=== PATIENT | female | born 1955 | race African-American/Black ===

== ENCOUNTER 2016-06-20 02:40 | Emergency (ER) | payer MEDICARE, MEDICAID ==
[~2016-06-20] VITALS: Ht 167.6 cm; Wt 62.0 kg
[2016-06-20] MEDS ORDERED: ACETAMINOPHEN 500 MG TABLET PO ONE (03:05)
[2016-06-20] MEDS ORDERED: ACETAMINOPHEN 500 MG TABLET ONE (03:06)
[2016-06-20] MEDS ORDERED: CARV3.122 PO (03:23)
[2016-06-20] MEDS ORDERED: ATOR40TA78 PO (03:23)
[2016-06-20] MEDS ORDERED: TRAZ50TA18 PO (03:23)
[2016-06-20] MEDS ORDERED: LISI5TAB7 PO (03:23)
[2016-06-20] MEDS ORDERED: AMLO10TA2 PO (03:23)
[2016-06-20] MEDS ORDERED: ALBU90AE INH (03:23)
[2016-06-20] MEDS ORDERED: CLON0.2T PO (03:23)
[2016-06-20 03:30] LABS: HEMOGLOBIN 11.2 g/dL (11.7-16.4)
[2016-06-20 03:39] LABS: BLOOD UREA NITROGEN 41 mg/dL (7-18)
[2016-06-20] MEDS ORDERED: SODIUM CHLORIDE 0.9% 1,000ML IVBOLUS ONE (04:00)
[2016-06-20] MEDS ORDERED: SODIUM CHLORIDE FLUSH 10ML SYR IVF ONE (04:00)
[2016-06-20 04:38] VITALS: BP 166/88
== END 2016-06-20 04:39 | disposition home or self-care (01) ==
LOC: ED 04:33
DX: M54.5 Low back pain (principal); I10 Essential (primary) hypertension; E11.9 Type 2 diabetes mellitus without complications; F15.10 Other stimulant abuse, uncomplicated
CPT/HCPCS: 36415; 80048; 81001; 82040; 85025; 87086; 99284; J7030

== ENCOUNTER 2018-01-21 05:42 | Inpatient (IN) | payer MEDICARE, MEDICAID ==
[~2018-01-21] VITALS: Ht 165.1 cm; Wt 66.1 kg
[~2018-01-21 05:42] MED LIST: ALBU90AE INH; AMLO10TA6 PO; ATOR40TA78 PO; CALC667C PO; CARV12.543 PO; CARV3.122 PO; CLON0.2T PO; ERGO500017 PO; LISI5TAB7 PO; NICO-487 TD; SEVE800T8 PO; TRAZ-136 PO; VANC1VIA3 PO
[2018-01-21] MEDS ORDERED: ONDANSETRON 2MG/ML, 2ML ONE (05:59)
[2018-01-21] MEDS ORDERED: SODIUM CHLORIDE FLUSH 10ML SYR IVF ONE (06:00)
[2018-01-21] MEDS ORDERED: MORPHINE SULFATE 4 MG/ML, 1ML IVPush PRN (06:00)
[2018-01-21] MEDS ORDERED: MORPHINE SULFATE 4 MG/ML, 1ML ONE (06:00)
[2018-01-21] MEDS ORDERED: ONDANSETRON 2MG/ML, 2ML IVPush ONE (06:00)
[2018-01-21] MEDS ORDERED: ONDANSETRON ODT 4 MG ONE (06:35)
[2018-01-21] MEDS ORDERED: OXYcodone/APAP 5/325MG TABLET ONE (06:36)
[2018-01-21] MEDS ORDERED: OXYcodone/APAP 5/325MG TABLET PO ONE (07:00)
[2018-01-21] MEDS ORDERED: ONDANSETRON ODT 4 MG PO ONE (07:00)
[2018-01-21 07:01] LABS: BASOPHILS # (AUTO) 0.05 x10^3/uL (0-0.1); BASOPHILS % (AUTO) 1 % (0-1); EOSINOPHILS # (AUTO) 0.16 x10^3/uL (0-0.4); EOSINOPHILS % (AUTO) 2 % (1-7); LYMPHOCYTES # (AUTO) 2.16 x10^3/uL (1-3.4); LYMPHOCYTES % (AUTO) 31 % (22-44); MD NO; MEAN CORPUSCULAR HEMOGLOBIN 29.8 pg (27.0-34.8); MEAN CORPUSCULAR HGB CONC 32.5 g/dL (32.4-35.8); MEAN CORPUSCULAR VOLUME 91.8 fL (80-100); MEAN PLATELET VOLUME 8.3 fL (7.4-10.4); MONOCYTES # (AUTO) 0.57 x10^3/uL (0.2-0.8); MONOCYTES % (AUTO) 8 % (2-9); NEUTROPHILS # (AUTO) 4.11 x10^3/uL (1.8-6.8); NEUTROPHILS % (AUTO) 58 % (42-75); PLATELET COUNT 251 x10^3/uL (130-400); RED BLOOD COUNT 3.53 x10^6/uL (3.82-5.3); RED CELL DISTRIBUTION WIDTH 18.1 % (9.6-15.2)
[2018-01-21 07:10] LABS: ALANINE AMINOTRANSFERASE 24 U/L (12-78); ALBUMIN 3.4 g/dL (3.4-5.0); ANION GAP 10 mmol/L (5-15); CALCIUM 8.8 mg/dL (8.5-10.1); CHLORIDE 101 mmol/L (98-107)
[2018-01-21 07:12] LABS: ALKALINE PHOSPHATASE 114 U/L (45-117); BILIRUBIN,TOTAL 0.3 mg/dL (0.2-1.0); TOTAL PROTEIN 8.1 g/dL (6.4-8.2)
[2018-01-21 11:32] LABS: CULTURE INDICATED? YES; MICROSCOPIC INDICATED
[2018-01-21] MEDS ORDERED: SODIUM CHLORIDE 0.9% 1,000ML IVBOLUS ONE (12:00)
[2018-01-21] MEDS: VALSARTAN 80 MG TABLET PO SCH (12:13)
[2018-01-21] MEDS ORDERED: HYDROmorphone 2 MG/ML, 1ML IVPush PRN (12:30)
[2018-01-21] MEDS ORDERED: LABETALOL 5MG/ML, 20ML IVPush PRN (12:30)
[2018-01-21] MEDS ORDERED: ACETAMINOPHEN 325 MG TABLET PO PRN (12:30)
[2018-01-21] MEDS ORDERED: ERGOCALCIFEROL 50,000 UNIT CAPSULE PO SCH (12:30)
[2018-01-21] MEDS ORDERED: OXYcodone IR 5MG TABLET PO PRN (12:30)
[2018-01-21] MEDS ORDERED: hydrALAzine 20 MG/ML, 1ML IVPush PRN (12:30)
[2018-01-21] MEDS ORDERED: CEFTRIAXONE PMX 1GM/50ML 50 ML IV ONE (13:00)
[2018-01-21] MEDS: HEPARIN 5,000 UNITS/ML, 1ML SQ SCH ×2 (14:06→21:36)
[2018-01-21] MEDS: NICOTINE 21 MG/24 HR PATCH.TD24 TD SCH (14:06)
[2018-01-21 14:14] VITALS: BP 165/89
[2018-01-21] MEDS: SEVELAMER CARBONATE 800MG TAB PO SCH (17:00)
[2018-01-21] MEDS: VANCOMYCIN 50 MG/ML ORAL SUSP PO SCH ×2 (17:32→23:16)
[2018-01-21] MEDS: CALCIUM ACETATE 667 MG CAPSULE PO SCH ×2 (17:32→21:36)
[2018-01-21] MEDS: CARVEDILOL 12.5 MG TABLET PO SCH (17:33)
[2018-01-21] MEDS ORDERED: TRAZODONE 50MG TABLET PO SCH (21:00)
[2018-01-21] MEDS ORDERED: ATORVASTATIN 40 MG TABLET PO SCH (21:00)
[2018-01-21 21:01] VITALS: BP 131/66
[2018-01-22 03:09] VITALS: BP 132/79
[2018-01-22] MEDS: HEPARIN 5,000 UNITS/ML, 1ML SQ SCH ×2 (05:16→14:46)
[2018-01-22] MEDS: CARVEDILOL 12.5 MG TABLET PO SCH (05:16)
[2018-01-22] MEDS: VANCOMYCIN 50 MG/ML ORAL SUSP PO SCH ×2 (05:16→10:31)
[2018-01-22 05:17] VITALS: BP 131/76
[2018-01-22 05:54] LABS: BASOPHILS # (AUTO) 0.05 x10^3/uL (0-0.1); BASOPHILS % (AUTO) 1 % (0-1); EOSINOPHILS # (AUTO) 0.17 x10^3/uL (0-0.4); EOSINOPHILS % (AUTO) 3 % (1-7); LYMPHOCYTES # (AUTO) 2.01 x10^3/uL (1-3.4); LYMPHOCYTES % (AUTO) 35 % (22-44); MD NO; MEAN CORPUSCULAR HEMOGLOBIN 30.8 pg (27.0-34.8); MEAN CORPUSCULAR HGB CONC 33.1 g/dL (32.4-35.8); MEAN CORPUSCULAR VOLUME 93.1 fL (80-100); MEAN PLATELET VOLUME 8.4 fL (7.4-10.4); MONOCYTES # (AUTO) 0.45 x10^3/uL (0.2-0.8); MONOCYTES % (AUTO) 8 % (2-9); NEUTROPHILS # (AUTO) 3.05 x10^3/uL (1.8-6.8); NEUTROPHILS % (AUTO) 53 % (42-75); PLATELET COUNT 219 x10^3/uL (130-400); RED BLOOD COUNT 3.22 x10^6/uL (3.82-5.3); RED CELL DISTRIBUTION WIDTH 17.8 % (9.6-15.2)
[2018-01-22 06:05] LABS: CALCIUM 8.3 mg/dL (8.5-10.1); CHLORIDE 103 mmol/L (98-107)
[2018-01-22 06:11] LABS: ANION GAP 10 mmol/L (5-15); CREATININE 7.29 mg/dL (0.55-1.02)
[2018-01-22 06:12] LABS: ALBUMIN 2.9 g/dL (3.4-5.0); CHOL/HDL RATIO 1.6; CHOLESTEROL, TOTAL 102 mg/dL (140-239); HDL CHOL % 63 % (28-40); HDL CHOLESTEROL (DIRECT) 64 mg/dL (40-60); LDL CHOLESTEROL,CALCULATED 28 mg/dL (54-169); LDL/HDL RATIO 0.4 (0.5-3.0); TRIGLYCERIDES 52 mg/dL (50-200); VLDL CHOLESTEROL 10 mg/dL (0-25)
[2018-01-22 06:44] VITALS: BP 150/78
[2018-01-22] MEDS: SEVELAMER CARBONATE 800MG TAB PO SCH ×2 (08:00→12:00)
[2018-01-22] MEDS: CALCIUM ACETATE 667 MG CAPSULE PO SCH ×2 (08:27→14:46)
[2018-01-22] MEDS: VALSARTAN 80 MG TABLET PO SCH (08:27)
[2018-01-22 13:45] VITALS: BP 167/79
[2018-01-22] MEDS: NICOTINE 21 MG/24 HR PATCH.TD24 TD SCH (14:47)
[2018-01-22] MEDS ORDERED: SULF1TAB24 PO (14:53)
[2018-01-22] MEDS ORDERED: VALS80TA30 PO (14:54)
== END 2018-01-22 18:02 | disposition home or self-care (01) | DRG 438 ==
LOC: ED 05:53 → EDIP 12:16 → 4WST 13:11
PROVIDERS: ADMIT Hospitalist; ATTEND Family Medicine
PROC: 5A1D70Z Performance of Urinary Filtration, Intermittent, Less than 6 Hours Per Day (ICD-10-PCS; principal; 2018-01-21)
DX: K85.90 Acute pancreatitis without necrosis or infection, unspecified (principal); N18.6 End stage renal disease; G93.40 Encephalopathy, unspecified; I12.0 Hypertensive chronic kidney disease with stage 5 chronic kidney disease or end stage renal disease; Z99.2 Dependence on renal dialysis; E11.22 Type 2 diabetes mellitus with diabetic chronic kidney disease; D63.1 Anemia in chronic kidney disease; E87.5 Hyperkalemia; E87.70 Fluid overload, unspecified; F17.200 Nicotine dependence, unspecified, uncomplicated; F19.90 Other psychoactive substance use, unspecified, uncomplicated; N25.0 Renal osteodystrophy; Z59.0 Homelessness; Z76.5 Malingerer [conscious simulation]; Z86.19 Personal history of other infectious and parasitic diseases
CPT/HCPCS: 36415; 72146; 72148; 74176; 80053; 80061; 80069; 81001; 83690; 83735; 84550; 85025; 86141; 87077; 87086; 87186; 99285; G0378; J1644; J3370; Q0162

== ENCOUNTER 2018-03-31 10:55 | Inpatient (IN) | payer MEDICARE, MEDICAID ==
[~2018-03-31] VITALS: Ht 165.1 cm; Wt 62.6 kg
[~2018-03-31 10:55] MED LIST changes: +SULF1TAB24 PO; -TRAZ-136 PO; +TRAZ50TA66 PO; +VALS80TA30 PO
[2018-03-31] MEDS ORDERED: hydrALAzine 20 MG/ML, 1ML IV ONE (11:30)
[2018-03-31] MEDS ORDERED: NITROGLYCERIN SINGLE TAB 0.4 MG SL PRN (11:30)
[2018-03-31] MEDS ORDERED: SODIUM CHLORIDE FLUSH 10ML SYR IVF ONE (11:30)
[2018-03-31] MEDS ORDERED: NITROGLYCERIN SINGLE TAB 0.4 MG SL ONE (11:49)
[2018-03-31] MEDS ORDERED: hydrALAzine 20 MG/ML, 1ML ONE (11:50)
--- NOTE | 2018-03-31 12:20 | NUR ---
UNABLE TO GET IV OR US IV. DR SHI AWARE. PICC ORDERED.
--- NOTE | 2018-03-31 13:01 | NUR ---
PT REFUSED 3RD DOSE OF NITRO.
[2018-03-31 13:02] LABS: BASOPHILS # (AUTO) 0.02 x10^3/uL (0-0.1); BASOPHILS % (AUTO) 1 % (0-1); EOSINOPHILS % (AUTO) 2 % (1-7); LYMPHOCYTES # (AUTO) 1.61 x10^3/uL (1-3.4); LYMPHOCYTES % (AUTO) 32 % (22-44); MD NO; MEAN CORPUSCULAR HEMOGLOBIN 30.7 pg (27.0-34.8); MEAN CORPUSCULAR VOLUME 90.3 fL (80-100); MEAN PLATELET VOLUME 7.5 fL (7.4-10.4); MONOCYTES # (AUTO) 0.37 x10^3/uL (0.2-0.8); MONOCYTES % (AUTO) 7 % (2-9); NEUTROPHILS % (AUTO) 58 % (42-75); PLATELET COUNT 220 x10^3/uL (130-400); RED BLOOD COUNT 3.95 x10^6/uL (3.82-5.3); RED CELL DISTRIBUTION WIDTH 15.9 % (9.6-15.2)
[2018-03-31 13:10] LABS: ALBUMIN 3.5 g/dL (3.4-5.0); ANION GAP 14 mmol/L (5-15); CALCIUM 7.5 mg/dL (8.5-10.1); CHLORIDE 101 mmol/L (98-107)
[2018-03-31 13:13] LABS: ALANINE AMINOTRANSFERASE 35 U/L (12-78); BILIRUBIN,TOTAL 0.5 mg/dL (0.2-1.0); TOTAL PROTEIN 8.2 g/dL (6.4-8.2); TROPONIN I 0.045 ng/mL (0.000-0.045)
--- NOTE | 2018-03-31 13:13 | NUR ---
PT TO IR FOR PICC PLACEMENT
[2018-03-31 13:26] LABS: ALKALINE PHOSPHATASE 118 U/L (45-117); T4 (THYROXINE) 6.8 mcg/dL (4.8-13.9)
--- NOTE | 2018-03-31 13:40 | NUR ---
CRITICAL K 7.3, BUN 105, PHOS 11.2; RESULTS TAKEN BY MILLI; DR SHI AWARE.
[2018-03-31] MEDS ORDERED: CALCIUM CHLORIDE 10%, 10ML SYR ONE (13:42)
[2018-03-31] MEDS ORDERED: DEXTROSE 50%, 50ML SYRINGE ONE (13:42)
[2018-03-31] MEDS ORDERED: SODIUM BICARB 8.4%, 50ML SYRINGE ONE (13:42)
[2018-03-31] MEDS ORDERED: INSULIN REGULAR 100 UNITS/ML, 3ML VIAL ONE (13:43)
[2018-03-31] MEDS ORDERED: SODIUM BICARB 8.4%, 50ML SYRINGE IVPush ONE (14:00)
[2018-03-31] MEDS ORDERED: SODIUM CHLORIDE FLUSH 10ML SYR IVF PRN (14:00)
[2018-03-31] MEDS ORDERED: CALCIUM CHLORIDE 10%, 10ML SYR IVPush ONE (14:00)
[2018-03-31] MEDS ORDERED: INSULIN REGULAR 100 UNITS/ML, 3ML VIAL IVPush ONE (14:00)
[2018-03-31] MEDS ORDERED: DEXTROSE 50%, 50ML SYRINGE IVPush ONE (14:00)
[2018-03-31] MEDS ORDERED: LABETALOL 20 MG/4 ML ONE (14:06)
[2018-03-31] MEDS ORDERED: LABETALOL 5MG/ML, 20ML IVPush ONE (14:30)
[2018-03-31] MEDS ORDERED: ONDANSETRON 2MG/ML, 2ML IVPush PRN (15:00)
[2018-03-31] MEDS ORDERED: hydrALAzine 20 MG/ML, 1ML IVPush PRN (15:00)
[2018-03-31] MEDS ORDERED: ALBUTEROL SULFATE 2.5 MG/3 ML HHN PRN (15:00)
[2018-03-31] MEDS ORDERED: ERGOCALCIFEROL 50,000 UNIT CAPSULE PO SCH (15:00)
[2018-03-31] MEDS ORDERED: ONDANSETRON ODT 4 MG PO PRN (15:00)
[2018-03-31] MEDS ORDERED: LABETALOL 5MG/ML, 20ML IVPush PRN (15:00)
[2018-03-31] MEDS ORDERED: DEXTROSE 4 GM TAB.CHEW PO PRN (15:30)
[2018-03-31] MEDS ORDERED: DEXTROSE 50%, 50ML SYRINGE IVPush PRN (15:30)
[2018-03-31] MEDS ORDERED: GLUCAGON 1 MG IM PRN (15:30)
[2018-03-31] MEDS: CALCIUM ACETATE 667 MG CAPSULE PO SCH ×2 (16:30→20:40)
[2018-03-31 17:15] VITALS: BP 178/101
[2018-03-31] MEDS: SEVELAMER CARBONATE 800MG TAB PO SCH (18:33)
[2018-03-31] MEDS: CARVEDILOL 12.5 MG TABLET PO SCH (18:33)
[2018-03-31] MEDS: NICOTINE 21 MG/24 HR PATCH.TD24 TD SCH (18:34)
[2018-03-31 20:26] VITALS: BP 142/79
[2018-03-31] MEDS: HEPARIN 5,000 UNITS/ML, 1ML SQ SCH (20:40)
[2018-03-31] MEDS: SODIUM CHLORIDE FLUSH 10ML SYR IVF SCH (20:40)
[2018-03-31] MEDS: ATORVASTATIN 40 MG TABLET PO SCH (20:40)
[2018-03-31] MEDS ORDERED: TRAZODONE 50MG TABLET PO SCH (21:00)
[2018-03-31] MEDS: ACETAMINOPHEN 325 MG TABLET PO PRN (23:06)
[2018-04-01 00:47] VITALS: BP 130/77
[2018-04-01] MEDS ORDERED: GABAPENTIN 300 MG CAPSULE PO ONE (02:00)
[2018-04-01] MEDS: ACETAMINOPHEN 325 MG TABLET PO PRN (02:59)
[2018-04-01 05:44] LABS: BASOPHILS # (AUTO) 0.04 x10^3/uL (0-0.1); BASOPHILS % (AUTO) 1 % (0-1); EOSINOPHILS # (AUTO) 0.09 x10^3/uL (0-0.4); EOSINOPHILS % (AUTO) 2 % (1-7); LYMPHOCYTES # (AUTO) 1.78 x10^3/uL (1-3.4); LYMPHOCYTES % (AUTO) 40 % (22-44); MD NO; MEAN CORPUSCULAR HEMOGLOBIN 30.4 pg (27.0-34.8); MEAN CORPUSCULAR HGB CONC 33.7 g/dL (32.4-35.8); MEAN CORPUSCULAR VOLUME 90.2 fL (80-100); MEAN PLATELET VOLUME 7.9 fL (7.4-10.4); MONOCYTES # (AUTO) 0.43 x10^3/uL (0.2-0.8); MONOCYTES % (AUTO) 10 % (2-9); NEUTROPHILS % (AUTO) 47 % (42-75); PLATELET COUNT 194 x10^3/uL (130-400); RED BLOOD COUNT 3.66 x10^6/uL (3.82-5.3); RED CELL DISTRIBUTION WIDTH 16.8 % (9.6-15.2)
[2018-04-01 05:58] LABS: CHLORIDE 100 mmol/L (98-107)
[2018-04-01] MEDS: CARVEDILOL 12.5 MG TABLET PO SCH ×2 (06:01→17:42)
[2018-04-01] MEDS: HEPARIN 5,000 UNITS/ML, 1ML SQ SCH ×2 (06:01→13:03)
[2018-04-01 06:35] LABS: ALBUMIN 3.2 g/dL (3.4-5.0); CALCIUM 8.2 mg/dL (8.5-10.1); CREATININE 8.62 mg/dL (0.55-1.02)
[2018-04-01 07:00] LABS: ANION GAP 11 mmol/L (5-15)
[2018-04-01 07:48] VITALS: BP 126/79
[2018-04-01] MEDS: CALCIUM ACETATE 667 MG CAPSULE PO SCH ×2 (08:16→17:42)
[2018-04-01] MEDS: SEVELAMER CARBONATE 800MG TAB PO SCH ×3 (08:17→17:42)
[2018-04-01] MEDS: SODIUM CHLORIDE FLUSH 10ML SYR IVF SCH (08:19)
[2018-04-01] MEDS ORDERED: VALSARTAN 80 MG TABLET PO SCH (09:00)
[2018-04-01 12:52] VITALS: BP 151/88
[2018-04-01] MEDS ORDERED: CALC667C PO (13:50)
[2018-04-01] MEDS ORDERED: ERGO500017 PO (13:50)
[2018-04-01] MEDS ORDERED: CARV12.543 PO (13:50)
[2018-04-01] MEDS ORDERED: VALS80TA30 PO (13:50)
[2018-04-01] MEDS ORDERED: ATOR40TA78 PO (13:50)
[2018-04-01] MEDS ORDERED: SEVE800T8 PO (13:50)
[2018-04-01] MEDS: NICOTINE 21 MG/24 HR PATCH.TD24 TD SCH (15:00)
[2018-04-01] MEDS ORDERED: IPRATROPIUM 0.5 MG/2.5 ML INHA ONE (16:07)
[2018-04-01] MEDS: ATORVASTATIN 40 MG TABLET PO SCH (18:50)
== END 2018-04-01 18:59 | disposition home or self-care (01) | DRG 640 ==
LOC: ED 11:53 → EDIP 13:58 → 4EST 15:19
PROVIDERS: ADMIT Hospitalist; ATTEND Hospitalist
PROC: 02HV33Z Insertion of Infusion Device into Superior Vena Cava, Percutaneous Approach (ICD-10-PCS; principal; 2018-03-31)
PROC: B5181ZA Fluoroscopy of Superior Vena Cava using Low Osmolar Contrast, Guidance (ICD-10-PCS; 2018-03-31)
PROC: B548ZZA Ultrasonography of Superior Vena Cava, Guidance (ICD-10-PCS; 2018-03-31)
PROC: 5A1D70Z Performance of Urinary Filtration, Intermittent, Less than 6 Hours Per Day (ICD-10-PCS; 2018-03-31)
PROC: 5A1D70Z Performance of Urinary Filtration, Intermittent, Less than 6 Hours Per Day (ICD-10-PCS; 2018-04-01)
DX: E87.5 Hyperkalemia (principal); N18.6 End stage renal disease; N17.9 Acute kidney failure, unspecified; I12.0 Hypertensive chronic kidney disease with stage 5 chronic kidney disease or end stage renal disease; I16.0 Hypertensive urgency; E83.39 Other disorders of phosphorus metabolism; D64.9 Anemia, unspecified; E11.22 Type 2 diabetes mellitus with diabetic chronic kidney disease; H53.8 Other visual disturbances; F17.210 Nicotine dependence, cigarettes, uncomplicated; N25.0 Renal osteodystrophy; Z86.19 Personal history of other infectious and parasitic diseases; Z59.0 Homelessness; Z91.15 Patient's noncompliance with renal dialysis; Z91.19 Patient's noncompliance with other medical treatment and regimen; Z99.2 Dependence on renal dialysis
CPT/HCPCS: 36415; 36569; 71045; 76937; 77001; 80053; 80069; 80162; 82962; 83735; 83880; 84100; 84436; 84484; 85025; 93005; 96374; 96375; 96376; 99291; G0378; J1644; C1751; J0360

== ENCOUNTER 2018-06-25 13:42 | Inpatient (IN) | payer MEDICARE, MEDICAID ==
[~2018-06-25] VITALS: Ht 165.1 cm; Wt 61.7 kg
[~2018-06-25 13:42] MED LIST changes: -AMLO10TA6 PO; +AMLO10TA8 PO
[2018-06-25] MEDS ORDERED: SODIUM CHLORIDE FLUSH 10ML SYR IVF ONE (14:00)
[2018-06-25 14:41] LABS: BASOPHILS # (AUTO) 0.03 x10^3/uL (0-0.1); BASOPHILS % (AUTO) 1 % (0-1); EOSINOPHILS # (AUTO) 0.33 x10^3/uL (0-0.4); EOSINOPHILS % (AUTO) 6 % (1-7); LYMPHOCYTES # (AUTO) 1.49 x10^3/uL (1-3.4); LYMPHOCYTES % (AUTO) 28 % (22-44); MD NO; MEAN CORPUSCULAR HEMOGLOBIN 29.4 pg (27.0-34.8); MEAN CORPUSCULAR HGB CONC 32.4 g/dL (32.4-35.8); MEAN CORPUSCULAR VOLUME 90.7 fL (80-100); MONOCYTES # (AUTO) 0.32 x10^3/uL (0.2-0.8); MONOCYTES % (AUTO) 6 % (2-9); NEUTROPHILS # (AUTO) 3.21 x10^3/uL (1.8-6.8); NEUTROPHILS % (AUTO) 60 % (42-75); PLATELET COUNT 207 x10^3/uL (130-400); RED CELL DISTRIBUTION WIDTH 16.6 % (9.6-15.2)
[2018-06-25 14:44] LABS: ALANINE AMINOTRANSFERASE 29 U/L (12-78); ALBUMIN 3.8 g/dL (3.4-5.0); CALCIUM 7.6 mg/dL (8.5-10.1)
[2018-06-25 14:49] LABS: ALKALINE PHOSPHATASE 127 U/L (45-117); BILIRUBIN,TOTAL 0.4 mg/dL (0.2-1.0); TOTAL PROTEIN 8.2 g/dL (6.4-8.2)
[2018-06-25 14:54] LABS: ANION GAP 13 mmol/L (5-15); CHLORIDE 104 mmol/L (98-107)
--- NOTE | 2018-06-25 15:18 | NUR ---
UNABLE TO OBTAIN IV ACCESS. CHARGE NURSE MADE AWARE. CHARGE NURSE ATTEMPTING TO START IV
[2018-06-25] MEDS ORDERED: INSULIN REGULAR 100 UNITS/ML, 3ML VIAL IVPush ONE (15:30)
[2018-06-25] MEDS ORDERED: SODIUM BICARB 8.4%, 50ML SYRINGE IVPush ONE (15:30)
[2018-06-25] MEDS ORDERED: DEXTROSE 50%, 50ML SYRINGE IVPush ONE (15:30)
[2018-06-25] MEDS ORDERED: CALCIUM CHLORIDE 10%, 10ML SYR IVPush ONE (15:30)
[2018-06-25] MEDS ORDERED: SODIUM BICARBONATE 1 MEQ/ML, 50ML VIAL ONE (15:51)
[2018-06-25] MEDS ORDERED: CALCIUM CHLORIDE 10%, 10ML SYR ONE (15:51)
[2018-06-25] MEDS ORDERED: INSULIN SINGLE DOSE, ER SQ-INSULIN ONE (15:52)
--- NOTE | 2018-06-25 15:56 | NUR ---
NURSE ATTEMPTING IV ACCESS AT THIS TIME
[2018-06-25] MEDS ORDERED: SODIUM CHLORIDE FLUSH 10ML SYR IVF PRN (16:00)
--- NOTE | 2018-06-25 16:11 | NUR ---
HOSPITALIST AT BEDSIDE
--- NOTE | 2018-06-25 16:25 | NUR ---
UNABLE TO OBTAIN IV ACCESS. DR SHI MADE AWARE. DR SHI STATES OKAY TO TAKE PT TO DIALYSIS 4TH FLOOR DESPITE NO ACCESS. JOSE GUADALUPE COMMUNICATING WITH HOSPITALIST REGARDING NEED FOR IV ACCESS, POSSIBLE PICC LINE PLACEMENT. SPOKE JUAN MANUEL ROSARIO ORTHOPEDIC ASSISTANT AND COMMUNICATED SAME TO HER. PT TO DIALYSIS ROOM VIA [place] ON MONITOR WITH TECH.
[2018-06-25] MEDS: HEPARIN 5,000 UNITS/ML, 1ML SQ SCH ×2 (16:30→21:53)
[2018-06-25] MEDS ORDERED: ONDANSETRON ODT 4 MG PO PRN (16:30)
[2018-06-25] MEDS ORDERED: ONDANSETRON 2MG/ML, 2ML IVPush PRN (16:30)
[2018-06-25] MEDS ORDERED: ERGOCALCIFEROL 50,000 UNIT CAPSULE PO SCH (16:30)
[2018-06-25] MEDS: NICOTINE 21 MG/24 HR PATCH.TD24 TD SCH (16:30)
[2018-06-25] MEDS ORDERED: hydrALAzine 20 MG/ML, 1ML IVPush PRN (16:30)
[2018-06-25] MEDS ORDERED: SEVELAMER CARBONATE 800MG TAB PO SCH (17:00)
--- NOTE | 2018-06-25 17:47 | NUR ---
ZA BROUGHT UP PT'S BELONGINGS TO DIALYSIS. ZA INFORMED RN PT NEEDS TO GO TO IR FROM DIALYSIS. REPORT GIVEN TO YENNY IN PREPARATION FOR PT GOING TO 490-2 AFTER DIALYSIS AND IR. YENNY STATES HE WILL ALSO WALK OVER AND MAKE CERTAIN DIALYSIS NURSE KNOWS SHE IS GOING TO IR AFTER DIALYSIS
[2018-06-25] MEDS ORDERED: CARVEDILOL 12.5 MG TABLET PO ONE (18:00)
[2018-06-25 18:31] LABS: ANION GAP 11 mmol/L (5-15); CALCIUM 7.6 mg/dL (8.5-10.1); CHLORIDE 105 mmol/L (98-107)
[2018-06-25 21:00] VITALS: BP 171/95
[2018-06-25] MEDS: SEVELAMER CARBONATE 800MG TAB PO SCH (21:52)
[2018-06-25] MEDS: ATORVASTATIN 40 MG TABLET PO SCH (21:53)
[2018-06-25] MEDS: TRAZODONE 50MG TABLET PO SCH (21:53)
[2018-06-25] MEDS: CALCIUM ACETATE 667 MG CAPSULE PO SCH (21:53)
[2018-06-26 01:38] VITALS: BP 175/101
[2018-06-26 06:08] LABS: BASOPHILS # (AUTO) 0.02 x10^3/uL (0-0.1); BASOPHILS % (AUTO) 0 % (0-1); EOSINOPHILS # (AUTO) 0.28 x10^3/uL (0-0.4); EOSINOPHILS % (AUTO) 7 % (1-7); LYMPHOCYTES # (AUTO) 1.57 x10^3/uL (1-3.4); LYMPHOCYTES % (AUTO) 37 % (22-44); MD NO; MEAN CORPUSCULAR HEMOGLOBIN 29.5 pg (27.0-34.8); MEAN CORPUSCULAR HGB CONC 32.7 g/dL (32.4-35.8); MEAN CORPUSCULAR VOLUME 90.3 fL (80-100); MONOCYTES # (AUTO) 0.42 x10^3/uL (0.2-0.8); MONOCYTES % (AUTO) 10 % (2-9); NEUTROPHILS # (AUTO) 1.92 x10^3/uL (1.8-6.8); NEUTROPHILS % (AUTO) 46 % (42-75); PLATELET COUNT 159 x10^3/uL (130-400); RED BLOOD COUNT 3.72 x10^6/uL (3.82-5.3)
[2018-06-26 06:19] LABS: ALBUMIN 3.3 g/dL (3.4-5.0); ANION GAP 11 mmol/L (5-15); CALCIUM 7.9 mg/dL (8.5-10.1); CHLORIDE 104 mmol/L (98-107)
[2018-06-26 07:29] VITALS: BP 170/95
[2018-06-26] MEDS: SEVELAMER CARBONATE 800MG TAB PO SCH ×3 (08:00→17:32)
[2018-06-26] MEDS: HEPARIN 5,000 UNITS/ML, 1ML SQ SCH ×2 (08:30→17:33)
[2018-06-26] MEDS ORDERED: VALSARTAN 80 MG TABLET PO ONE (09:00)
[2018-06-26] MEDS: CALCITRIOL 0.5 MCG CAPSULE PO SCH (09:00)
[2018-06-26] MEDS: CALCIUM ACETATE 667 MG CAPSULE PO SCH ×3 (09:00→20:45)
[2018-06-26] MEDS: CARVEDILOL 12.5 MG TABLET PO SCH ×2 (11:52→17:36)
[2018-06-26] MEDS: VALSARTAN 80 MG TABLET PO SCH (11:54)
[2018-06-26 12:26] VITALS: BP 174/94
[2018-06-26] MEDS: NICOTINE 21 MG/24 HR PATCH.TD24 TD SCH (17:37)
[2018-06-26] MEDS ORDERED: CARVEDILOL 12.5 MG TABLET PO SCH (18:00)
[2018-06-26 19:08] VITALS: BP 156/75
[2018-06-26] MEDS: TRAZODONE 50MG TABLET PO SCH (20:44)
[2018-06-26] MEDS: ATORVASTATIN 40 MG TABLET PO SCH (20:44)
[2018-06-26 21:17] LABS: CLOSTRIDIUM DIFFICILE ANTIGEN POSITIVE; CLOSTRIDIUM DIFFICILE TOXIN NEGATIVE (Negative)
[2018-06-27] MEDS: HEPARIN 5,000 UNITS/ML, 1ML SQ SCH ×3 (00:30→16:30)
[2018-06-27 01:42] VITALS: BP 154/82
[2018-06-27] MEDS: CARVEDILOL 12.5 MG TABLET PO SCH (05:26)
[2018-06-27 07:12] VITALS: BP 158/104
[2018-06-27] MEDS: CALCITRIOL 0.5 MCG CAPSULE PO SCH (09:54)
[2018-06-27] MEDS: SEVELAMER CARBONATE 800MG TAB PO SCH ×3 (09:54→17:00)
[2018-06-27] MEDS: VALSARTAN 80 MG TABLET PO SCH (09:55)
[2018-06-27] MEDS: CALCIUM ACETATE 667 MG CAPSULE PO SCH ×2 (09:55→16:00)
[2018-06-27 11:50] LABS: ANION GAP 8 mmol/L (5-15); CHLORIDE 103 mmol/L (98-107); CREATININE 9.37 mg/dL (0.55-1.02)
[2018-06-27 12:43] VITALS: BP 158/97
[2018-06-27] MEDS ORDERED: VALS80TA30 PO (14:38)
[2018-06-27] MEDS ORDERED: ERGO500017 PO (14:38)
[2018-06-27] MEDS ORDERED: ATOR40TA78 PO (14:38)
[2018-06-27] MEDS ORDERED: SEVE800T8 PO (14:38)
[2018-06-27] MEDS ORDERED: CARV12.543 PO (14:38)
[2018-06-27] MEDS ORDERED: CALC0.5C9 PO (14:38)
[2018-06-27] MEDS ORDERED: CALC667C PO (14:38)
[2018-06-27] MEDS: NICOTINE 21 MG/24 HR PATCH.TD24 TD SCH (16:30)
== END 2018-06-27 21:55 | disposition home or self-care (01) | DRG 682 ==
LOC: ED 14:54 → EDIP 15:57 → 4EST 17:08
PROVIDERS: ADMIT Internal Medicine; ATTEND Internal Medicine
PROC: 5A1D70Z Performance of Urinary Filtration, Intermittent, Less than 6 Hours Per Day (ICD-10-PCS; 2018-06-25)
PROC: 02HV33Z Insertion of Infusion Device into Superior Vena Cava, Percutaneous Approach (ICD-10-PCS; principal; 2018-06-26)
PROC: B5181ZA Fluoroscopy of Superior Vena Cava using Low Osmolar Contrast, Guidance (ICD-10-PCS; 2018-06-26)
PROC: B548ZZA Ultrasonography of Superior Vena Cava, Guidance (ICD-10-PCS; 2018-06-26)
PROC: 5A1D70Z Performance of Urinary Filtration, Intermittent, Less than 6 Hours Per Day (ICD-10-PCS; 2018-06-26)
DX: I13.11 Hypertensive heart and chronic kidney disease without heart failure, with stage 5 chronic kidney disease, or end stage renal disease (principal); N18.6 End stage renal disease; I16.9 Hypertensive crisis, unspecified; E87.5 Hyperkalemia; D63.1 Anemia in chronic kidney disease; E11.22 Type 2 diabetes mellitus with diabetic chronic kidney disease; E78.5 Hyperlipidemia, unspecified; E83.51 Hypocalcemia; F17.210 Nicotine dependence, cigarettes, uncomplicated; F19.10 Other psychoactive substance abuse, uncomplicated; N25.0 Renal osteodystrophy; Z59.0 Homelessness; Z86.19 Personal history of other infectious and parasitic diseases; Z89.429 Acquired absence of other toe(s), unspecified side; Z91.15 Patient's noncompliance with renal dialysis; Z91.19 Patient's noncompliance with other medical treatment and regimen; Z99.2 Dependence on renal dialysis; Z95.828 Presence of other vascular implants and grafts; Z79.84 Long term (current) use of oral hypoglycemic drugs
CPT/HCPCS: 36415; 36573; 71045; 80048; 80053; 80069; 83605; 83880; 83970; 85025; 86705; 86706; 87324; 87340; 87493; 89055; 93005; 99291; G0378; J1644; C1751

== ENCOUNTER 2018-12-03 08:36 | Emergency (ER) | payer MEDICARE, MEDICAID ==
[~2018-12-03] VITALS: Ht 165.1 cm; Wt 63.3 kg
[~2018-12-03 08:36] MED LIST changes: +CALC0.5C9 PO; +METH500T7 PO; +PANT20TA3 PO
[2018-12-03] MEDS ORDERED: SODIUM CHLORIDE 0.9% 1,000ML IVBOLUS ONE (09:30)
[2018-12-03] MEDS ORDERED: SODIUM CHLORIDE FLUSH 10ML SYR IVF ONE (09:30)
--- NOTE | 2018-12-03 09:39 | NUR ---
Pt transfored on gurney to CT. MARTINEZ.
[2018-12-03 09:46] LABS: BASOPHILS # (AUTO) 0.03 x10^3/uL (0-0.1); BASOPHILS % (AUTO) 1 % (0-1); EOSINOPHILS # (AUTO) 0.31 x10^3/uL (0-0.4); EOSINOPHILS % (AUTO) 6 % (1-7); LYMPHOCYTES # (AUTO) 1.16 x10^3/uL (1-3.4); LYMPHOCYTES % (AUTO) 24 % (22-44); MD NO; MEAN CORPUSCULAR HGB CONC 32.8 g/dL (32.4-35.8); MEAN CORPUSCULAR VOLUME 91.7 fL (80-100); MONOCYTES # (AUTO) 0.42 x10^3/uL (0.2-0.8); MONOCYTES % (AUTO) 9 % (2-9); NEUTROPHILS # (AUTO) 2.95 x10^3/uL (1.8-6.8); NEUTROPHILS % (AUTO) 61 % (42-75); PLATELET COUNT 208 x10^3/uL (130-400); RED BLOOD COUNT 3.17 x10^6/uL (3.82-5.3); RED CELL DISTRIBUTION WIDTH 17.4 % (9.6-15.2)
[2018-12-03 09:58] LABS: ALANINE AMINOTRANSFERASE 10 U/L (12-78); ALBUMIN 2.9 g/dL (3.4-5.0); ANION GAP 10 mmol/L (5-15); CALCIUM 8.5 mg/dL (8.5-10.1); CHLORIDE 105 mmol/L (98-107); CREATININE 9.87 mg/dL (0.55-1.02)
[2018-12-03 10:00] LABS: ALKALINE PHOSPHATASE 169 U/L (45-117); BILIRUBIN,TOTAL 0.3 mg/dL (0.2-1.0); TOTAL PROTEIN 7.8 g/dL (6.4-8.2)
[2018-12-03 10:03] VITALS: BP 158/89
--- NOTE | 2018-12-03 10:05 | NUR ---
LATE NOTE FOR 0849: Pt presents to ED by EMS from [facility] after receiving Alteplase through Rt femoral cath prior to dialysis and having a low bp of sbp 90's over dbp 80's and ALOC. Pt resting on gurney connected to NIBP cuff, continous pulse ox, and hall monitor. Pt is afebrile. ED EMT at bedside performing EKG. Pt states, "I was having sharp pains here (right upper chest) earlier". Pt denies cp at this time. Pt denies cp at this time, sob, n/v/d, syncope, or trauma. Pt repeatedly asks, "Why am I here." Pt AOX3, and is confused to situation. Bedrails up x 2, call light within reach. No needs requested at this time.
--- NOTE | 2018-12-03 10:08 | NUR ---
Per ED MD verbal orders, not placing a PIV at this time, obtaining second set of blood cultures, or performing straight cath UA at this time. Orders to be held at this time per ED MD verbal order.
--- NOTE | 2018-12-03 10:52 | NUR ---
[facility]. Deysi states, "Our reach lift truck driver will be on their way."
[2018-12-03] MEDS ORDERED: SODIUM POLYSTYRENE SULFONATE ORAL SUSP PO ONE (11:30)
--- NOTE | 2018-12-03 11:43 | NUR ---
Assited pt to bathroom contact assist x 1 to wheelchair. Pt back to [facility] for rehab medicine resting. Pt waiting for bull driver from [facility] to arrive to arrive. NADN. No needs expressed.
--- NOTE | 2018-12-03 12:12 | NUR ---
Patient and caregiver given discharge instructions and they have confirmed that they understand the instructions. Patient pushed in wheelchair by caregiver to edna. JUAN. No needs expressed.
== END 2018-12-03 12:14 | disposition home or self-care (01) ==
LOC: ED 09:48
DX: E87.5 Hyperkalemia (principal); D64.9 Anemia, unspecified; I10 Essential (primary) hypertension; E11.9 Type 2 diabetes mellitus without complications; R51 Headache
CPT/HCPCS: 36415; 70450; 71045; 80053; 83605; 85025; 87040; 93005; 99284

== ENCOUNTER 2019-01-14 07:12 | Inpatient (IN) | payer MEDICARE, MEDICAID ==
[~2019-01-14] VITALS: Ht 165.1 cm; Wt 68.4 kg
[2019-01-14] MEDS ORDERED: ZOLP10TA PO (07:40)
[2019-01-14] MEDS ORDERED: MIDO5TAB9 PO (07:40)
[2019-01-14] MEDS ORDERED: INSU100C5 SQ-INSULIN (07:40)
[2019-01-14] MEDS ORDERED: QUET25TA7 PO (07:40)
[2019-01-14] MEDS ORDERED: DOCU100T3 PO (07:40)
[2019-01-14] MEDS ORDERED: HYDR-3240 PO (07:40)
[2019-01-14] MEDS ORDERED: OMEP-110 PO (07:40)
--- NOTE | 2019-01-14 08:06 | NUR ---
UOB WITHOUT ASSISTANCE AND TO BATHROOM WITH USE OF WALKER, STEADY GAIT
--- NOTE | 2019-01-14 08:19 | NUR ---
ANALYTIC PROGRAMMER AT BEDSIDE.
[2019-01-14 09:56] LABS: BASOPHILS # (AUTO) 0.03 x10^3/uL (0-0.1); BASOPHILS % (AUTO) 1 % (0-1); EOSINOPHILS # (AUTO) 0.33 x10^3/uL (0-0.4); EOSINOPHILS % (AUTO) 8 % (1-7); LYMPHOCYTES # (AUTO) 1.55 x10^3/uL (1-3.4); LYMPHOCYTES % (AUTO) 37 % (22-44); MD NO; MEAN CORPUSCULAR HEMOGLOBIN 29.7 pg (27.0-34.8); MEAN CORPUSCULAR HGB CONC 31.8 g/dL (32.4-35.8); MEAN CORPUSCULAR VOLUME 93.2 fL (80-100); MEAN PLATELET VOLUME 9.2 fL (7.4-10.4); MONOCYTES % (AUTO) 7 % (2-9); NEUTROPHILS # (AUTO) 1.97 x10^3/uL (1.8-6.8); NEUTROPHILS % (AUTO) 47 % (42-75); PLATELET COUNT 149 x10^3/uL (130-400); RED BLOOD COUNT 3.86 x10^6/uL (3.82-5.3); RED CELL DISTRIBUTION WIDTH 17.3 % (9.6-15.2)
[2019-01-14 10:06] LABS: ANION GAP 13 mmol/L (5-15); CALCIUM 8.7 mg/dL (8.5-10.1); CHLORIDE 107 mmol/L (98-107)
--- NOTE | 2019-01-14 10:24 | NUR ---
TALKING ON PHONE, NO DISTRESS. AWAITING DISPO
--- NOTE | 2019-01-14 12:00 | NUR ---
REPORT TO [facility]OC RN, PT TO BE TRANSPORTED WHEN ROOM AVAILABLE
--- NOTE | 2019-01-14 12:09 | NUR ---
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
[2019-01-14 13:07] VITALS: BP 173/82
[2019-01-14] MEDS ORDERED: LIDOCAINE 1%, 10ML ONE (14:14)
[2019-01-14] MEDS ORDERED: FENTANYL PF 100 MCG/2ML ONE (14:26)
[2019-01-14] MEDS ORDERED: MIDAZOLAM 1 MG/ML, 5ML ONE (14:27)
[2019-01-14] MEDS ORDERED: FLUMAZENIL 0.1 MG/1 ML, 5ML ONE (14:27)
[2019-01-14] MEDS ORDERED: NALOXONE 1 MG/ML, 2ML ONE (14:27)
[2019-01-14] MEDS ORDERED: CEFAZOLIN PMX 1GM/50ML 50 ML ONE (14:33)
[2019-01-14] MEDS ORDERED: hydrALAzine 20 MG/ML, 1ML IVPush PRN (15:00)
[2019-01-14] MEDS: HEPARIN 5,000 UNITS/ML, 1ML SQ SCH ×2 (15:00→23:45)
[2019-01-14] MEDS ORDERED: morphine SULFATE 10 MG/ML, 1ML IVPush PRN (15:00)
[2019-01-14] MEDS ORDERED: ERGOCALCIFEROL 50,000 UNIT CAPSULE PO SCH (15:00)
[2019-01-14] MEDS ORDERED: ONDANSETRON 2MG/ML, 2ML IVPush PRN (15:00)
[2019-01-14] MEDS ORDERED: ONDANSETRON ODT 4 MG PO PRN (15:00)
[2019-01-14] MEDS ORDERED: BISACODYL 10 MG SUPP PR PRN (15:00)
[2019-01-14] MEDS ORDERED: POLYETHYLENE GLYCOL 17 GM PACKET PO PRN (15:00)
[2019-01-14] MEDS ORDERED: ACETAMINOPHEN 325 MG TABLET PO PRN (15:00)
[2019-01-14] MEDS ORDERED: OXYcodone IR 5MG TABLET PO PRN (15:00)
[2019-01-14] MEDS ORDERED: PROMETHAZINE 25 MG/ML, 1ML IM PRN (15:00)
[2019-01-14] MEDS ORDERED: DOCUSATE 100 MG CAPSULE PO PRN (15:00)
[2019-01-14 15:30] LABS: FREE T4 (FREE THYROXINE) 0.77 ng/dL (0.76-1.46)
[2019-01-14 16:05] LABS: HEMOGLOBIN A1C 5.4 % (4.2-6.3)
[2019-01-14] MEDS: SEVELAMER CARBONATE 800MG TAB PO SCH (19:16)
[2019-01-14 21:12] VITALS: BP 93/37
[2019-01-14 22:15] VITALS: BP 109/49
[2019-01-14] MEDS: CARVEDILOL 12.5 MG TABLET PO SCH (22:43)
[2019-01-14] MEDS: OMEPRAZOLE 20 MG CAPSULE.DR PO SCH (22:56)
[2019-01-14] MEDS: QUETIAPINE 25MG TABLET PO SCH (22:56)
[2019-01-14] MEDS: ATORVASTATIN 40 MG TABLET PO SCH (22:56)
[2019-01-15 01:09] VITALS: BP 120/73
[2019-01-15] MEDS: HEPARIN 5,000 UNITS/ML, 1ML SQ SCH ×2 (08:00→16:00)
[2019-01-15] MEDS: SEVELAMER CARBONATE 800MG TAB PO SCH ×3 (08:35→17:47)
[2019-01-15] MEDS: DOCUSATE 100 MG CAPSULE PO SCH (08:35)
[2019-01-15] MEDS: OMEPRAZOLE 20 MG CAPSULE.DR PO SCH ×2 (08:35→20:52)
[2019-01-15 08:51] VITALS: BP 119/58
[2019-01-15] MEDS: CARVEDILOL 12.5 MG TABLET PO SCH ×2 (09:00→17:47)
[2019-01-15 14:59] LABS: BASOPHILS # (AUTO) 0.03 x10^3/uL (0-0.1); BASOPHILS % (AUTO) 1 % (0-1); EOSINOPHILS % (AUTO) 8 % (1-7); LYMPHOCYTES % (AUTO) 34 % (22-44); MD NO; MEAN CORPUSCULAR HEMOGLOBIN 29.9 pg (27.0-34.8); MEAN CORPUSCULAR HGB CONC 32.1 g/dL (32.4-35.8); MEAN CORPUSCULAR VOLUME 93.2 fL (80-100); MEAN PLATELET VOLUME 9.5 fL (7.4-10.4); MONOCYTES % (AUTO) 8 % (2-9); NEUTROPHILS # (AUTO) 1.74 x10^3/uL (1.8-6.8); NEUTROPHILS % (AUTO) 49 % (42-75); PLATELET COUNT 158 x10^3/uL (130-400); RED BLOOD COUNT 3.94 x10^6/uL (3.82-5.3); RED CELL DISTRIBUTION WIDTH 17.6 % (9.6-15.2)
[2019-01-15 15:01] LABS: ALBUMIN 3.3 g/dL (3.4-5.0); ANION GAP 8 mmol/L (5-15); CALCIUM 8.4 mg/dL (8.5-10.1); CHLORIDE 105 mmol/L (98-107)
[2019-01-15 15:05] LABS: ALANINE AMINOTRANSFERASE 32 U/L (12-78); ALKALINE PHOSPHATASE 145 U/L (45-117); BILIRUBIN,TOTAL 0.3 mg/dL (0.2-1.0); CREATININE 8.65 mg/dL (0.55-1.02); TOTAL PROTEIN 8.6 g/dL (6.4-8.2)
[2019-01-15 18:30] VITALS: BP 115/61
[2019-01-15] MEDS: QUETIAPINE 25MG TABLET PO SCH (20:52)
[2019-01-15] MEDS: ATORVASTATIN 40 MG TABLET PO SCH (20:52)
[2019-01-16 00:45] VITALS: BP 90/63
[2019-01-16] MEDS: CARVEDILOL 12.5 MG TABLET PO SCH (05:33)
[2019-01-16 05:48] VITALS: BP 102/57
[2019-01-16 07:48] VITALS: BP 122/68
[2019-01-16] MEDS: HEPARIN 5,000 UNITS/ML, 1ML SQ SCH ×3 (08:00→16:00)
[2019-01-16] MEDS: SEVELAMER CARBONATE 800MG TAB PO SCH ×2 (08:51→12:11)
[2019-01-16] MEDS: DOCUSATE 100 MG CAPSULE PO SCH (08:51)
[2019-01-16] MEDS: OMEPRAZOLE 20 MG CAPSULE.DR PO SCH (08:51)
[2019-01-16 10:04] LABS: ANION GAP 10 mmol/L (5-15); CALCIUM 9.1 mg/dL (8.5-10.1); CHLORIDE 103 mmol/L (98-107); CREATININE 4.77 mg/dL (0.55-1.02)
[2019-01-16 10:19] LABS: MD YES; MEAN CORPUSCULAR HEMOGLOBIN 30.2 pg (27.0-34.8); MEAN CORPUSCULAR VOLUME 94.4 fL (80-100); PLATELET COUNT 128 x10^3/uL (130-400); RED BLOOD COUNT 4.07 x10^6/uL (3.82-5.3); RED CELL DISTRIBUTION WIDTH 17.4 % (9.6-15.2)
[2019-01-16 10:20] LABS: BASOPHILS # (AUTO) 0.04 x10^3/uL (0-0.1); BASOPHILS % (AUTO) 1 % (0-1); EOSINOPHILS # (AUTO) 0.43 x10^3/uL (0-0.4); EOSINOPHILS % (AUTO) 9 % (1-7); LYMPHOCYTES # (AUTO) 1.59 x10^3/uL (1-3.4); LYMPHOCYTES % (AUTO) 33 % (22-44); MONOCYTES # (AUTO) 0.36 x10^3/uL (0.2-0.8); MONOCYTES % (AUTO) 8 % (2-9); NEUTROPHILS # (AUTO) 2.43 x10^3/uL (1.8-6.8); NEUTROPHILS % (AUTO) 50 % (42-75)
[2019-01-16 10:40] LABS: BAND#(MANUAL) 0.05 x10^3/uL; BANDS%(MANUAL) 1 % (0-7); BASOS#(MANUAL) 0.05 x10^3/uL (0-0.1); BASOS% (MANUAL) 1 % (0-1); EOS#(MANUAL) 0.54 x10^3/uL (0.0-0.4); EOS% (MANUAL) 11 % (1-7); LYMPH#(MANUAL) 1.96 x10^3/uL (1-3.4); LYMPHS% (MANUAL) 40 % (22-44); MONOS#(MANUAL) 0.15 x10^3/uL (0.3-2.7); MONOS% (MANUAL) 3 % (2-9); SEG#(MANUAL) 2.16 x10^3/uL (1.8-6.8); SEGS% (MANUAL) 44 % (42-75)
[2019-01-16 10:41] LABS: <PLATELET ESTIMATE> ADEQUATE; <PLT MORPHOLOGY> NORMAL PLT MORPH; <RBC MORPHOLOGY> NORMAL
[2019-01-16] MEDS ORDERED: ATOR40TA78 PO (13:12)
[2019-01-16] MEDS ORDERED: SEVE800T8 PO (13:12)
[2019-01-16] MEDS ORDERED: CARV12.52 PO (13:12)
[2019-01-16] MEDS ORDERED: ERGO500017 PO (13:12)
[2019-01-16] MEDS ORDERED: VALS80TA30 PO (13:12)
[2019-01-16] MEDS ORDERED: QUET25TA7 PO (13:12)
[2019-01-16 14:27] VITALS: BP 113/66
== END 2019-01-16 17:10 | disposition home health service (06) | DRG 314 ==
LOC: ED 09:16 → EDIP 11:18 → 4EST 12:44 → DCLOUNGE 01-16 17:00
PROVIDERS: ADMIT Internal Medicine; ATTEND Family Medicine
PROC: 0J2WXYZ Change Other Device in Lower Extremity Subcutaneous Tissue and Fascia, External Approach (ICD-10-PCS; principal; 2019-01-14)
PROC: B5191ZA Fluoroscopy of Inferior Vena Cava using Low Osmolar Contrast, Guidance (ICD-10-PCS; 2019-01-14)
PROC: 5A1D70Z Performance of Urinary Filtration, Intermittent, Less than 6 Hours Per Day (ICD-10-PCS; 2019-01-14)
PROC: 5A1D70Z Performance of Urinary Filtration, Intermittent, Less than 6 Hours Per Day (ICD-10-PCS; 2019-01-15)
PROC: 5A1D70Z Performance of Urinary Filtration, Intermittent, Less than 6 Hours Per Day (ICD-10-PCS; 2019-01-16)
DX: T82.41XA Breakdown (mechanical) of vascular dialysis catheter, initial encounter (principal); N18.6 End stage renal disease; I12.0 Hypertensive chronic kidney disease with stage 5 chronic kidney disease or end stage renal disease; F12.90 Cannabis use, unspecified, uncomplicated; E87.5 Hyperkalemia; D63.1 Anemia in chronic kidney disease; E11.22 Type 2 diabetes mellitus with diabetic chronic kidney disease; F17.210 Nicotine dependence, cigarettes, uncomplicated; N25.0 Renal osteodystrophy; Z91.14 Patient's other noncompliance with medication regimen; Y83.8 Other surgical procedures as the cause of abnormal reaction of the patient, or of later complication, without mention of misadventure at the time of the procedure; Y92.89 Other specified places as the place of occurrence of the external cause; Y71.2 Prosthetic and other implants, materials and accessory cardiovascular devices associated with adverse incidents; Z99.2 Dependence on renal dialysis; Z91.15 Patient's noncompliance with renal dialysis; Z53.20 Procedure and treatment not carried out because of patient's decision for unspecified reasons
CPT/HCPCS: 36415; 36575; 75984; 80048; 80053; 83036; 83735; 84439; 84443; 85025; 86706; 87340; 90935; 93005; 99156; 99157; 99285; G0378; J0690; J2250; J3010; C1750; C1769; J1642; J2310

== ENCOUNTER 2019-03-14 10:26 | Emergency (ER) | payer MEDICARE, MEDICAID ==
[~2019-03-14] VITALS: Ht 165.1 cm; Wt 65.0 kg
[~2019-03-14 10:26] MED LIST changes: +CARV12.52 PO; +DOCU100T3 PO; +HYDR-3240 PO; +INSU100C5 SQ-INSULIN; +MIDO5TAB9 PO; +OMEP-110 PO; +QUET25TA7 PO; +ZOLP10TA PO
--- NOTE | 2019-03-14 10:42 | NUR ---
BIB EMS FOR CHEST PAIN STARTING LAST NIGHT. RECENT DIALYSIS YESTERDAY. 324 ASA IN ROUTE, BG 126. EKG UNREMARKABLE PER EMS. PT DID NOT TAKE ANY HOME MEDICATIONS TODAY. PT IS NOT IN ANY DISTRESS. RESPIRATIONS EVEN AND UNLABORED. EKG DONE. WASHTUB WORKER APPLIED, VS STABLE. PT STATES HER PAIN IS 10/10. "ONLY IN CHEST"
[2019-03-14 11:35] LABS: BASOPHILS # (AUTO) 0.01 x10^3/uL (0-0.1); BASOPHILS % (AUTO) 0 % (0-1); EOSINOPHILS # (AUTO) 0.14 x10^3/uL (0-0.4); EOSINOPHILS % (AUTO) 2 % (1-7); LYMPHOCYTES # (AUTO) 1.28 x10^3/uL (1-3.4); LYMPHOCYTES % (AUTO) 21 % (22-44); MD NO; MEAN CORPUSCULAR HGB CONC 32.4 g/dL (32.4-35.8); MEAN CORPUSCULAR VOLUME 92.5 fL (80-100); MONOCYTES # (AUTO) 0.55 x10^3/uL (0.2-0.8); MONOCYTES % (AUTO) 9 % (2-9); NEUTROPHILS # (AUTO) 4.27 x10^3/uL (1.8-6.8); NEUTROPHILS % (AUTO) 68 % (42-75); PLATELET COUNT 157 x10^3/uL (130-400); RED BLOOD COUNT 3.99 x10^6/uL (3.82-5.3)
[2019-03-14 11:48] LABS: ALBUMIN 3.1 g/dL (3.4-5.0); ANION GAP 8 mmol/L (5-15); CALCIUM 9.5 mg/dL (8.5-10.1); CHLORIDE 102 mmol/L (98-107); CREATININE 7.96 mg/dL (0.55-1.02)
[2019-03-14 11:51] LABS: TROPONIN I < 0.015 ng/mL (0.000-0.045)
[2019-03-14 12:35] VITALS: BP 160/80
--- NOTE | 2019-03-14 12:38 | NUR ---
PT RESTING. BACK FROM IMAGING. NO NEEDS AT THIS TIME
--- NOTE | 2019-03-14 13:34 | NUR ---
Patient/Caregiver given discharge instructions and they have confirmed that they understand the instructions. Patient ambulatory with steady gait.
--- NOTE | 2019-03-14 13:50 | NUR ---
Patient/Caregiver given discharge instructions and they have confirmed that they understand the instructions. Patient ambulatory with steady gait.
== END 2019-03-14 13:52 | disposition home or self-care (01) ==
LOC: ED 11:08
DX: R07.89 Other chest pain (principal); M25.512 Pain in left shoulder; M54.2 Cervicalgia; F15.90 Other stimulant use, unspecified, uncomplicated; I12.0 Hypertensive chronic kidney disease with stage 5 chronic kidney disease or end stage renal disease; E11.22 Type 2 diabetes mellitus with diabetic chronic kidney disease; N18.6 End stage renal disease; E87.5 Hyperkalemia
CPT/HCPCS: 36415; 71045; 72050; 80048; 82040; 84484; 85025; 93005; 99284

== ENCOUNTER 2019-09-28 06:50 | Emergency (ER) | payer MEDICARE, MEDICAID ==
[~2019-09-28] VITALS: Ht 165.1 cm; Wt 65.0 kg
[~2019-09-28 06:50] MED LIST changes: +ACID1TAB7 PO; +CARV25TA12 PO; +CEFI400C PO; +SENN-193 PO; +TRAM50TA2 PO
[2019-09-28 07:11] VITALS: BP 189/107
[2019-09-28] MEDS ORDERED: DEXAMETHASONE 4 MG/ML, 1ML ONE (07:18)
[2019-09-28] MEDS ORDERED: ONDANSETRON ODT 4 MG ONE (07:23)
[2019-09-28] MEDS ORDERED: DEXAMETHASONE 4 MG TABLET ONE (07:24)
[2019-09-28] MEDS ORDERED: DEXAMETHASONE 4 MG TABLET PO ONE (07:30)
--- NOTE | 2019-09-28 08:21 | NUR ---
AFTER TX COMPLETED AMBULATED TO DISCHARGE WINDOW WITH USE OF WALKER, STEADY GAIT AND NO SOB NOTED
== END 2019-09-28 08:39 | disposition home or self-care (01) ==
LOC: ED 08:05
DX: J45.31 Mild persistent asthma with (acute) exacerbation (principal); R06.00 Dyspnea, unspecified; R91.8 Other nonspecific abnormal finding of lung field; R00.0 Tachycardia, unspecified; I10 Essential (primary) hypertension; F17.290 Nicotine dependence, other tobacco product, uncomplicated
CPT/HCPCS: 71045; 93005; 99283; 99406

== ENCOUNTER 2019-09-28 16:56 | Emergency (ER) | payer MEDICARE, MEDICAID | END 2019-09-28 17:24 | LOC: ED 17:06 | DX: R68.89 Other general symptoms and signs (principal); Z53.21 Procedure and treatment not carried out due to patient leaving prior to being seen by health care provider ==

== ENCOUNTER 2019-10-06 12:14 | Emergency (ER) | payer MEDICARE, MEDICAID ==
[~2019-10-06] VITALS: Ht 162.6 cm; Wt 64.0 kg
--- NOTE | 2019-10-06 12:32 | NUR ---
biba remsa sob started last night hx copd, ppd smoker. deneis fever/no contact w covid people. alb neb x2 by ems w little relief. lungs dim bilat, exp wheeze slight heard in bilat bases. 100% ra. sitting up for comfort, no sleep last night, denies cough/fevers. on dialsysis mwf, goes reg. sahm at bedside for eval. av fistula r arm. report to brody meyer. sr on monirot. cxr at bedside. call jurado in reach. as
[2019-10-06 12:51] LABS: MEAN CORPUSCULAR HEMOGLOBIN 30.3 pg (27.0-34.8); MEAN CORPUSCULAR HGB CONC 31.9 g/dL (32.4-35.8); MEAN CORPUSCULAR VOLUME 95.1 fL (80-100); MEAN PLATELET VOLUME 8.2 fL (7.4-10.4); PLATELET COUNT 215 x10^3/uL (130-400); RED BLOOD COUNT 2.92 x10^6/uL (3.82-5.3); RED CELL DISTRIBUTION WIDTH 16.4 % (9.6-15.2)
[2019-10-06 13:03] LABS: ALANINE AMINOTRANSFERASE 22 U/L (12-78); ALBUMIN 3.1 g/dL (3.4-5.0); ANION GAP 7 mmol/L (5-15); CALCIUM 9.6 mg/dL (8.5-10.1); CHLORIDE 100 mmol/L (98-107); CREATININE 7.73 mg/dL (0.55-1.02)
[2019-10-06] MEDS ORDERED: LORazepam 1MG TABLET ONE (13:03)
[2019-10-06 13:06] LABS: ALKALINE PHOSPHATASE 108 U/L (45-117); BILIRUBIN,TOTAL 0.4 mg/dL (0.2-1.0); TOTAL PROTEIN 7.4 g/dL (6.4-8.2)
--- NOTE | 2019-10-06 13:08 | NUR ---
pt medicated per order. pt on nibp and o2 monitoring no acute distress noted, pt speaking in full sentences. pt very fidgety in bed. unable to keep still. no accessory muscle use notes.
[2019-10-06 13:16] LABS: MD YES
[2019-10-06 13:19] LABS: <PLATELET ESTIMATE> ADEQUATE; <PLT MORPHOLOGY> NORMAL PLT MORPH; ANISOCYTOSIS 1+; EOS% (MANUAL) 5 % (1-7); LYMPH#(MANUAL) 1.17 x10^3/uL (1-3.4); LYMPHS% (MANUAL) 30 % (22-44); MONOS#(MANUAL) 0.27 x10^3/uL (0.3-2.7); MONOS% (MANUAL) 7 % (2-9); SEG#(MANUAL) 2.26 x10^3/uL (1.8-6.8); SEGS% (MANUAL) 58 % (42-75)
[2019-10-06] MEDS ORDERED: LORazepam 1MG TABLET PO ONE (13:30)
--- NOTE | 2019-10-06 14:19 | NUR ---
pt sleeping in room at this time. pt drowsy but arousable. resps even and unlabored.
--- NOTE | 2019-10-06 15:06 | NUR ---
pt resting comfortably in bed at this time. denies sob at this time.
[2019-10-06 15:08] VITALS: BP 192/101
--- NOTE | 2019-10-06 15:51 | NUR ---
pt up to restroom via wheelchair at request. per pt gets around with walker at baseline. pt able to speak full sentences. respirations 22, lung sounds clear. pulse ox 100% room air
== END 2019-10-06 16:03 ==
LOC: ED 16:02
DX: E11.22 Type 2 diabetes mellitus with diabetic chronic kidney disease (principal); I12.0 Hypertensive chronic kidney disease with stage 5 chronic kidney disease or end stage renal disease; N18.6 End stage renal disease; D63.1 Anemia in chronic kidney disease; R06.00 Dyspnea, unspecified; R94.31 Abnormal electrocardiogram [ECG] [EKG]; J44.9 Chronic obstructive pulmonary disease, unspecified; Z99.2 Dependence on renal dialysis
CPT/HCPCS: 36415; 71045; 80053; 85025; 93005; 99285

== ENCOUNTER 2020-01-06 15:57 | Emergency (ER) | payer MEDICARE, MEDICAID ==
[~2020-01-06] VITALS: Ht 165.1 cm; Wt 59.0 kg
[~2020-01-06 15:57] MED LIST changes: -PANT20TA3 PO; +PANT20TA4 PO
[2020-01-06 16:20] VITALS: BP 131/68
--- NOTE | 2020-01-06 16:20 | NUR ---
PT BIB EMS C/O SHORTNESS OF BREATH AND ABD PAIN SINCE 0400. PT WENT TO DIALYSIS NORMAL THIS AM BUT SYMPTOMS HAVE PERSISTED. ABD PAIN IS IN THE LOWER ABD. PT ALSO STATES SHE HAS NOT HAD A BOWEL MOVEMENT OR URINATED WELL IN 2 DAYS. PT DENIES CHEST PAIN. PT HAS FISTULA IN RIGHT ARM.
--- NOTE | 2020-01-06 17:45 | NUR ---
PT NOT IN ROOM
--- NOTE | 2020-01-06 18:17 | NUR ---
DR HERNANDEZ STATES SHE SPOKE WITH PT ON TELEPHONE AND ENCOURAGED PT TO COME BACK TO BE ADMITTED R/T XRAY RESULTS AND PT DECLINED. MARY STATES THAT PRESCRIPTION MADE AVAILABLE TO PT AND PT ENCOURAGED TO RETURN IF NOT FEELING BETTER.
== END 2020-01-06 18:22 | disposition home or self-care (01) ==
LOC: ED 16:39
DX: J45.901 Unspecified asthma with (acute) exacerbation (principal); R06.02 Shortness of breath; J15.9 Unspecified bacterial pneumonia; K59.00 Constipation, unspecified; I12.0 Hypertensive chronic kidney disease with stage 5 chronic kidney disease or end stage renal disease; N18.6 End stage renal disease; E11.22 Type 2 diabetes mellitus with diabetic chronic kidney disease; Z99.2 Dependence on renal dialysis
CPT/HCPCS: 71045; 93005; 99283

== ENCOUNTER 2020-03-04 21:02 | Emergency (ER) | payer MEDICARE, MEDICAID ==
[~2020-03-04] VITALS: Ht 165.1 cm; Wt 60.0 kg
[~2020-03-04 21:02] MED LIST changes: +AMLO-211 PO; -AMLO10TA8 PO; -NICO-487 TD; +NICO-587 TD; +OMNIPAQUE 350 MG/ML, 75ML BOTTLE ONE
--- NOTE | 2020-03-04 21:09 | NUR ---
WHILE WATCHING TV DEVELOPED, MID STERNAL NON RADIATING CP WITH ASSOC NAUSEA AND SOB. REPORTS CP 9/10 ON ARRIVAL. WAS GIVEN NO ASA OR NTG IN ROUTE, NO IV. EKG NON ACUTE IN ROUTE. EKG ON ARRIVAL TO ER. PT HAD DIALYSIS TODAY TOOK OFF 1 LITER. GETS DIALYSIS MWF.
--- NOTE | 2020-03-04 21:23 | NUR ---
placed on monitor, cont pulse ox. side rails up, call jurado in reach.
--- NOTE | 2020-03-04 21:35 | NUR ---
Multiple attempts at PIV to left arm unsuccessful; lab coming to draw.
--- NOTE | 2020-03-04 22:05 | NUR ---
Called lab to stat draw blood.
--- NOTE | 2020-03-04 22:23 | NUR ---
Lab here drawing now.
[2020-03-04 22:41] LABS: BASOPHILS % (AUTO) 1 % (0-1); EOSINOPHILS % (AUTO) 1 % (1-7); LYMPHOCYTES % (AUTO) 13 % (22-44); MEAN CORPUSCULAR HEMOGLOBIN 31.2 pg (27.0-34.8); MEAN PLATELET VOLUME 7.9 fL (7.4-10.4); MONOCYTES % (AUTO) 11 % (2-9); NEUTROPHILS % (AUTO) 74 % (42-75); PLATELET COUNT 278 x10^3/uL (130-400); RED BLOOD COUNT 3.14 x10^6/uL (3.82-5.3); RED CELL DISTRIBUTION WIDTH 19.5 % (9.6-15.2)
[2020-03-04 22:49] LABS: MD NO
[2020-03-04 22:50] LABS: ALBUMIN 3.5 g/dL (3.4-5.0); ANION GAP 6 mmol/L (5-15); CALCIUM 10.9 mg/dL (8.5-10.1); CHLORIDE 100 mmol/L (98-107); CREATININE 5.28 mg/dL (0.55-1.02)
[2020-03-04 22:52] LABS: TROPONIN I 0.022 ng/mL (0.000-0.045)
[2020-03-04] MEDS ORDERED: KETOROLAC 30 MG/1 ML IVPush ONE (23:30)
[2020-03-05] MEDS ORDERED: KETOROLAC 30 MG/1 ML ONE (00:07)
--- NOTE | 2020-03-05 00:37 | NUR ---
Back from break, pt back from CT. VSS.
--- NOTE | 2020-03-05 01:07 | NUR ---
Pt sleeping intermittently. VSS. Waiting for re-eval/dispo. Toradol helped for pain.
--- NOTE | 2020-03-05 01:17 | NUR ---
Dr Salamanca at bedside, updating pt. Will give cab voucher to get pt home.
[2020-03-05 01:29] VITALS: BP 155/89
== END 2020-03-05 01:42 | disposition home or self-care (01) ==
LOC: ED 21:14
DX: R07.89 Other chest pain (principal); R06.00 Dyspnea, unspecified; D64.9 Anemia, unspecified; R00.0 Tachycardia, unspecified; I12.0 Hypertensive chronic kidney disease with stage 5 chronic kidney disease or end stage renal disease; N18.6 End stage renal disease; F17.210 Nicotine dependence, cigarettes, uncomplicated; Z99.2 Dependence on renal dialysis
CPT/HCPCS: 36415; 71045; 71260; 80048; 82040; 83880; 84484; 85025; 93005; 96374; 99285; 99406; J1885; Q9967

== ENCOUNTER 2020-05-04 10:06 | Observation (INO) | payer MEDICARE, MEDICAID ==
[~2020-05-04] VITALS: Ht 165.1 cm; Wt 61.8 kg
[~2020-05-04 10:06] MED LIST changes: +AZIT500T10 PO; +HYDR-1067 PO; -HYDR-3240 PO; +METH-639 PO; -METH500T7 PO; -OMNIPAQUE 350 MG/ML, 75ML BOTTLE ONE; +PRED20TA PO
[2020-05-04] MEDS ORDERED: ASPIRIN 81 MG TABLET CHEW PO ONE (10:30)
[2020-05-04] MEDS ORDERED: MORPHINE SULFATE 4 MG/ML, 1ML IVPush PRN (10:30)
[2020-05-04] MEDS ORDERED: SODIUM CHLORIDE FLUSH 10ML SYR IVF ONE (10:30)
--- NOTE | 2020-05-04 10:30 | NUR ---
MARYCHUY HUANGSA. PT STARTED EXPERIENCING CP AND SOB LAST EVENING. PT WENT TO DIALYSIS THIS MORNING, BUT MARTA REFUSED TO DIALIZE D/T PT'S SYMPTOMS. PT STATED THAT SHE HAD 9/10 STERNAL CHEST PAIN. PT WAS GIVEN 4 DOSES OF 0.4MG SL NITRO AND AN ALBUTEROL TREATMENT. PT STATED THAT CHEST PAIN WENT DOWN TO 7/10 AFTER NITRO. PT DENIES ANY RADIATING PAIN, N/V, DIZZINESS OR HEADACHE.
[2020-05-04] MEDS ORDERED: MORPHINE SULFATE 4 MG/ML, 1ML ONE (11:18)
[2020-05-04] MEDS ORDERED: ASPIRIN 81 MG TABLET CHEW ONE (11:19)
[2020-05-04 11:28] LABS: BASOPHILS % (AUTO) 1 % (0-1); EOSINOPHILS % (AUTO) 2 % (1-7); LYMPHOCYTES % (AUTO) 18 % (22-44); MEAN CORPUSCULAR HEMOGLOBIN 30.7 pg (27.0-34.8); MEAN CORPUSCULAR HGB CONC 32.7 g/dL (32.4-35.8); MEAN PLATELET VOLUME 8.1 fL (7.4-10.4); MONOCYTES % (AUTO) 10 % (2-9); NEUTROPHILS % (AUTO) 69 % (42-75); PLATELET COUNT 222 x10^3/uL (130-400); RED BLOOD COUNT 3.36 x10^6/uL (3.82-5.3); RED CELL DISTRIBUTION WIDTH 18.9 % (9.6-15.2)
--- NOTE | 2020-05-04 11:30 | NUR ---
pt resting in bed, call light in reach.
[2020-05-04 11:32] LABS: MD NO
[2020-05-04 11:35] LABS: ALBUMIN 3.5 g/dL (3.4-5.0); ANION GAP 13 mmol/L (5-15); CHLORIDE 102 mmol/L (98-107)
[2020-05-04 11:36] LABS: PROTHROMBIN TIME 10.7 Seconds (9.6-11.5)
[2020-05-04 11:40] LABS: TROPONIN I 0.026 ng/mL (0.000-0.045)
--- NOTE | 2020-05-04 12:24 | NUR ---
Echo celis in ED - 05/04/20 at 1231 by NORAH PT VOMITED. FERMÍN GIVEN PER MAY.
--- NOTE | 2020-05-04 13:16 | NUR ---
ATTEMPTED TO CALL REPORT TO TELE, NO ANSWER.
[2020-05-04] MEDS ORDERED: METHOCARBAMOL 500 MG TABLET PO PRN (13:30)
[2020-05-04] MEDS ORDERED: ONDANSETRON 2MG/ML, 2ML IVPush PRN (13:30)
[2020-05-04] MEDS ORDERED: hydrALAzine 20 MG/ML, 1ML IVPush PRN (13:30)
[2020-05-04] MEDS ORDERED: GUAIFENESIN/DM 200-20MG, 10ML UDC PO PRN (13:30)
[2020-05-04] MEDS ORDERED: NITROGLYCERIN 0.4 MG BOTTLE (25 TABS) SL PRN (13:30)
[2020-05-04] MEDS ORDERED: TEMAZEPAM 15 MG CAPSULE PO PRN (13:30)
[2020-05-04] MEDS ORDERED: NITROGLYCERIN 0.4 MG/SPRAY SL PRN (13:30)
[2020-05-04] MEDS ORDERED: DOCUSATE 100 MG CAPSULE PO PRN (13:30)
[2020-05-04] MEDS ORDERED: ACETAMINOPHEN 325 MG TABLET PO PRN (13:30)
--- NOTE | 2020-05-04 13:55 | NUR ---
ATTEMPTED TO CALL REPORT FOR SECOND TIME, NO ANSWER
--- NOTE | 2020-05-04 14:25 | NUR ---
REPORT GIVEN TO DONELL MICHAEL
[2020-05-04 14:47] LABS: TROPONIN I 0.029 ng/mL (0.000-0.045)
[2020-05-04 14:54] VITALS: BP 200/124
[2020-05-04 19:41] LABS: TROPONIN I 0.028 ng/mL (0.000-0.045)
[2020-05-04] MEDS: HEPARIN 5,000 UNITS/ML, 1ML SQ SCH (20:00)
[2020-05-04 20:21] VITALS: BP 135/69
[2020-05-05] MEDS: HEPARIN 5,000 UNITS/ML, 1ML SQ SCH ×2 (01:33→11:35)
[2020-05-05 02:34] VITALS: BP 139/75
[2020-05-05 04:55] LABS: BASOPHILS % (AUTO) 1 % (0-1); EOSINOPHILS % (AUTO) 4 % (1-7); LYMPHOCYTES % (AUTO) 23 % (22-44); MEAN CORPUSCULAR HEMOGLOBIN 30.3 pg (27.0-34.8); MEAN PLATELET VOLUME 8.1 fL (7.4-10.4); MONOCYTES % (AUTO) 14 % (2-9); NEUTROPHILS % (AUTO) 58 % (42-75); PLATELET COUNT 238 x10^3/uL (130-400); RED BLOOD COUNT 3.42 x10^6/uL (3.82-5.3); RED CELL DISTRIBUTION WIDTH 19.1 % (9.6-15.2)
[2020-05-05 04:59] LABS: MD NO
[2020-05-05 06:34] LABS: ALBUMIN 3.2 g/dL (3.4-5.0); ANION GAP 9 mmol/L (5-15); CALCIUM 9.4 mg/dL (8.5-10.1); CHLORIDE 97 mmol/L (98-107); CREATININE 6.64 mg/dL (0.55-1.02)
[2020-05-05 06:40] VITALS: BP 135/77
[2020-05-05] MEDS ORDERED: OMEP-110 PO (11:10)
[2020-05-05] MEDS ORDERED: SEVE800T8 PO (11:10)
[2020-05-05] MEDS ORDERED: ATOR40TA78 PO (11:10)
[2020-05-05] MEDS ORDERED: SEVELAMER CARBONATE 800MG TAB PO SCH (12:00)
[2020-05-05] MEDS ORDERED: ATORVASTATIN 40 MG TABLET PO SCH (21:00)
== END 2020-05-05 14:02 | disposition home or self-care (01) ==
LOC: ED 11:07 → INTOOBSV 12:42 → EDIP 12:42 → 5SO 14:56 → DCLOUNGE 05-05 13:58
PROVIDERS: ADMIT Internal Medicine; ATTEND Internal Medicine
DX: R07.89 Other chest pain (principal); I12.0 Hypertensive chronic kidney disease with stage 5 chronic kidney disease or end stage renal disease; E11.22 Type 2 diabetes mellitus with diabetic chronic kidney disease; N18.6 End stage renal disease; R79.89 Other specified abnormal findings of blood chemistry; D63.1 Anemia in chronic kidney disease; K21.9 Gastro-esophageal reflux disease without esophagitis; J96.01 Acute respiratory failure with hypoxia; J44.9 Chronic obstructive pulmonary disease, unspecified; E78.5 Hyperlipidemia, unspecified; F17.210 Nicotine dependence, cigarettes, uncomplicated; J90 Pleural effusion, not elsewhere classified; B19.20 Unspecified viral hepatitis C without hepatic coma; J81.0 Acute pulmonary edema; E87.70 Fluid overload, unspecified; E88.89 Other specified metabolic disorders; I34.0 Nonrheumatic mitral (valve) insufficiency; J81.1 Chronic pulmonary edema; F12.90 Cannabis use, unspecified, uncomplicated; Z79.899 Other long term (current) drug therapy; Z99.2 Dependence on renal dialysis; Z91.19 Patient's noncompliance with other medical treatment and regimen
CPT/HCPCS: 36415; 71045; 80048; 80069; 82040; 84443; 84484; 85025; 85610; 93005; 93306; 96374; 99285; G0378; J2270; G0257

== ENCOUNTER 2020-05-05 15:05 | Emergency (ER) | payer MEDICARE, MEDICAID ==
[~2020-05-05] VITALS: Ht 167.6 cm; Wt 50.0 kg
--- NOTE | 2020-05-05 15:10 | NUR ---
PT RA. PER EMS PT WAS ADMITTED HERE YESTERDAY AND D/RAUL ABOUT 1400 WHEN SHE STARTED TO FEEL LIGHT HEADED AND CALLED EMS TO BE BROUGHT BACK. PT CURRENTLY RESTING IN [facility] WITH EYES CLOSED, MONITORING IN PLACE, JUAN AT THIS TIME, RAKESH.
[2020-05-05] MEDS ORDERED: LORazepam 1MG TABLET ONE (15:39)
[2020-05-05] MEDS ORDERED: LORazepam 1MG TABLET PO ONE (16:00)
[2020-05-05 17:07] VITALS: BP 110/84
[2020-05-05 17:18] LABS: BASOPHILS % (AUTO) 1 % (0-1); EOSINOPHILS % (AUTO) 4 % (1-7); LYMPHOCYTES % (AUTO) 15 % (22-44); MEAN CORPUSCULAR HEMOGLOBIN 30.5 pg (27.0-34.8); MEAN PLATELET VOLUME 8.5 fL (7.4-10.4); MONOCYTES % (AUTO) 13 % (2-9); NEUTROPHILS % (AUTO) 68 % (42-75); PLATELET COUNT 292 x10^3/uL (130-400); RED BLOOD COUNT 4.12 x10^6/uL (3.82-5.3)
[2020-05-05 17:28] LABS: ALBUMIN 3.7 g/dL (3.4-5.0); ANION GAP 9 mmol/L (5-15); CALCIUM 10.1 mg/dL (8.5-10.1); CHLORIDE 96 mmol/L (98-107); CREATININE 7.84 mg/dL (0.55-1.02)
[2020-05-05 17:39] LABS: MD SCAN
== END 2020-05-05 18:30 | disposition home or self-care (01) ==
LOC: ED 18:15
DX: I12.0 Hypertensive chronic kidney disease with stage 5 chronic kidney disease or end stage renal disease (principal); N18.6 End stage renal disease; F41.1 Generalized anxiety disorder; R06.00 Dyspnea, unspecified; R06.89 Other abnormalities of breathing; E11.9 Type 2 diabetes mellitus without complications; J44.9 Chronic obstructive pulmonary disease, unspecified; F17.200 Nicotine dependence, unspecified, uncomplicated
CPT/HCPCS: 36415; 71045; 80048; 82040; 85025; 93005; 99285

== ENCOUNTER 2020-05-08 10:59 | Observation (INO) | payer MEDICARE, MEDICAID ==
[~2020-05-08] VITALS: Ht 165.1 cm; Wt 62.0 kg
--- NOTE | 2020-05-08 11:04 | NUR ---
MARYCHUY MURILLO FROM DIAYLSIS. EDP AND THIS RN RECEIVED RPT THEN PT TO CT. PT NON VERBAL. PER LIDIA THIS IS NOT NORMAL FOR HER. WILL ASSESS WHEN PT BACK FROM CT. DONELL EVANS WITH PT TO CT.
--- NOTE | 2020-05-08 11:18 | NUR ---
ZA FERNANDEZ AT BEDSIDE TO INSERT US PIV.
--- NOTE | 2020-05-08 11:21 | NUR ---
PER EMS PT HAD CALLED DIALYSIS CENTER YESTERDAY AND INFORMED THEM SHE WOULD BE MISSING HER DIALYSIS SESSION BECAUSE SHE HAD HAD A FALL. PT BROUGHT IN TODAY AND NONVERBAL AND APPEARING ALTERED. UNKNOWN LAST KNOWN WELL TIME. UNKNOWN WHO BROUGHT PT TO DIALYSIS. ON RETURN FROM CT, LAB AT BEDSIDE PREPARING TO DRAW BLOOD AND LEVON MARINE ENGINEERING TEACHER PREPARING TO START LINE VIA ULTRASOUND.
--- NOTE | 2020-05-08 11:25 | NUR ---
PT MINIMALLY VERBAL NOW. ABLE TO SAY HER FIRST NAME.
--- NOTE | 2020-05-08 11:36 | NUR ---
PT A&O3. PT UNABLE TO RECALL EVENT. PT MOVES ALL EXTREMITIES AND FOLLOWS ALL COMMANDS.
[2020-05-08 11:48] LABS: BASOPHILS % (AUTO) 1 % (0-1); EOSINOPHILS % (AUTO) 2 % (1-7); LYMPHOCYTES % (AUTO) 19 % (22-44); MEAN CORPUSCULAR HEMOGLOBIN 30.5 pg (27.0-34.8); MEAN CORPUSCULAR HGB CONC 33.2 g/dL (32.4-35.8); MEAN PLATELET VOLUME 8.9 fL (7.4-10.4); MONOCYTES % (AUTO) 10 % (2-9); NEUTROPHILS % (AUTO) 68 % (42-75); PLATELET COUNT 302 x10^3/uL (130-400); RED BLOOD COUNT 4.32 x10^6/uL (3.82-5.3); RED CELL DISTRIBUTION WIDTH 19.2 % (9.6-15.2)
--- NOTE | 2020-05-08 11:50 | NUR ---
NOTIFIED BY LYNN IN LAB THAT SAMPLES HEMOLYZED. LAB TO REDRAW.
[2020-05-08 11:52] LABS: MD NO
--- NOTE | 2020-05-08 11:54 | NUR ---
WARM BLANKETS PROVIDED. PT RESTING COMFORTABLY. VSS. MONITORS IN PLACE.
--- NOTE | 2020-05-08 12:34 | NUR ---
Patient is awake and alert to self, date, time and current president.
[2020-05-08 12:52] LABS: PROTHROMBIN TIME 10.7 Seconds (9.6-11.5)
[2020-05-08 12:53] LABS: ALBUMIN 3.4 g/dL (3.4-5.0); ANION GAP 13 mmol/L (5-15); CALCIUM 9.5 mg/dL (8.5-10.1); CHLORIDE 95 mmol/L (98-107)
[2020-05-08 12:56] LABS: ALANINE AMINOTRANSFERASE 18 U/L (12-78); ALKALINE PHOSPHATASE 73 U/L (45-117); BILIRUBIN,TOTAL 0.5 mg/dL (0.2-1.0); TOTAL PROTEIN 8.6 g/dL (6.4-8.2)
[2020-05-08] MEDS ORDERED: ENALAPRILAT 1.25 MG/ML, 2ML IVPush PRN (14:00)
[2020-05-08] MEDS ORDERED: ONDANSETRON ODT 4 MG PO PRN (14:00)
[2020-05-08] MEDS ORDERED: TRAZODONE 50MG TABLET PO PRN (14:00)
[2020-05-08] MEDS ORDERED: ONDANSETRON 2MG/ML, 2ML IVPush PRN (14:00)
[2020-05-08] MEDS ORDERED: hydrALAzine 20 MG/ML, 1ML IVPush PRN (14:00)
[2020-05-08] MEDS ORDERED: ENOXAPARIN 40 MG/0.4 ML SQ SCH (14:00)
--- NOTE | 2020-05-08 14:02 | NUR ---
BREAK RN: PT RESTING IN ROOM. PROGRAM DIRECTOR SCOUTING ON. NO ACUTE DISTRESS NOTED. CALL LIGHT IN PLACE. WILL CONTINUE TO MONITOR WHILE PRIMARY RN IS ON BREAK.
--- NOTE | 2020-05-08 15:00 | NUR ---
PT TO MRI
--- NOTE | 2020-05-08 15:16 | NUR ---
PT BACK FROM MRI. MONITORS IN PLACE. VSS
[2020-05-08] MEDS: HEPARIN 5,000 UNITS/ML, 1ML SQ SCH ×3 (15:37→22:14)
[2020-05-08 15:45] VITALS: BP 124/71
[2020-05-08] MEDS: SEVELAMER CARBONATE 800MG TAB PO SCH (17:15)
[2020-05-08] MEDS ORDERED: PROMETHAZINE 25 MG/ML, 1ML ONE (18:26)
[2020-05-08] MEDS ORDERED: PROMETHAZINE 25 MG/ML, 1ML IM PRN (18:30)
[2020-05-08 20:46] VITALS: BP 103/62
[2020-05-08] MEDS: CARVEDILOL 25 MG TABLET PO SCH (20:52)
[2020-05-08] MEDS: OMEPRAZOLE 20 MG CAPSULE.DR PO SCH (20:52)
[2020-05-08] MEDS ORDERED: ATORVASTATIN 40 MG TABLET PO SCH (21:00)
[2020-05-08] MEDS: ACETAMINOPHEN 325 MG TABLET PO PRN (22:13)
[2020-05-08 22:16] VITALS: BP 61/36
[2020-05-08] MEDS: SODIUM CHLORIDE 0.9%, 500ML IVBOLUS ONE ×2 (22:25→22:30)
[2020-05-08 22:44] VITALS: BP 80/37
[2020-05-08 23:59] VITALS: BP 70/51
[2020-05-09 00:52] VITALS: BP 93/55
[2020-05-09 01:02] VITALS: BP 92/49
[2020-05-09] MEDS: ACETAMINOPHEN 325 MG TABLET PO PRN (04:24)
[2020-05-09] MEDS: HEPARIN 5,000 UNITS/ML, 1ML SQ SCH (04:24)
[2020-05-09 04:26] VITALS: BP 113/49
[2020-05-09 07:09] VITALS: BP 99/47
[2020-05-09] MEDS: CARVEDILOL 25 MG TABLET PO SCH (09:41)
[2020-05-09] MEDS: SEVELAMER CARBONATE 800MG TAB PO SCH ×2 (09:41→12:00)
[2020-05-09] MEDS: OMEPRAZOLE 20 MG CAPSULE.DR PO SCH (09:41)
== END 2020-05-09 12:29 | disposition home or self-care (01) ==
LOC: ED 13:03 → EDIP 13:37 → INTOOBSV 13:37 → SUATTDRO 13:37 → 4WST 15:29
PROVIDERS: ADMIT Hospitalist; ATTEND Hospitalist
DX: G93.41 Metabolic encephalopathy (principal); I12.0 Hypertensive chronic kidney disease with stage 5 chronic kidney disease or end stage renal disease; E11.22 Type 2 diabetes mellitus with diabetic chronic kidney disease; N18.6 End stage renal disease; D63.1 Anemia in chronic kidney disease; E87.5 Hyperkalemia; E78.5 Hyperlipidemia, unspecified; K21.9 Gastro-esophageal reflux disease without esophagitis; J43.9 Emphysema, unspecified; G45.9 Transient cerebral ischemic attack, unspecified; J90 Pleural effusion, not elsewhere classified; B19.20 Unspecified viral hepatitis C without hepatic coma; R01.1 Cardiac murmur, unspecified; I05.0 Rheumatic mitral stenosis; R41.82 Altered mental status, unspecified; E88.89 Other specified metabolic disorders; F41.1 Generalized anxiety disorder; R47.01 Aphasia; F12.90 Cannabis use, unspecified, uncomplicated; F17.200 Nicotine dependence, unspecified, uncomplicated; Z79.899 Other long term (current) drug therapy; Z99.2 Dependence on renal dialysis; Z86.73 Personal history of transient ischemic attack (TIA), and cerebral infarction without residual deficits
CPT/HCPCS: 36415; 70450; 70551; 74176; 80053; 82962; 85025; 85610; 85730; 93005; 93880; 96372; 96374; 99285; G0378; J1644; J2405; J2550; J7040; G0257

== ENCOUNTER 2020-05-21 10:10 | Emergency (ER) | payer MEDICARE, MEDICAID ==
[~2020-05-21] VITALS: Ht 162.6 cm; Wt 64.0 kg
--- NOTE | 2020-05-21 10:18 | NUR ---
PT IS A 65F COMPLAINING OF SOB AND NOT ABLE TO TAKE A DEEP BREATH SINCE THIS MORNING. SHE IS VERY RESTLESS AND HAVING A HARD TIME LAYING STILL ON THE BED STATING ITS "HER NERVES." EKG UNABLE TO BE COMPLETED BECAUSE THE PT IS NOT ABLE TO STAY STILL. PT HAS A COUGH WHICH SHE STATES SHE HAS HAD SINCE SHE HAD PNEUMONIA BUT DOES NOT REMEMBER WHEN. PROVIDER AT BEDSIDE FOR EVAL AND POC. COMPLIANCE ADMINISTRATOR, SP02, AND BP MONITORS IN PLACE. CALL LIGHT WITHIN REACH.
[2020-05-21 10:54] LABS: BASOPHILS % (AUTO) 1 % (0-1); EOSINOPHILS % (AUTO) 2 % (1-7); LYMPHOCYTES % (AUTO) 13 % (22-44); MEAN CORPUSCULAR HEMOGLOBIN 29.6 pg (27.0-34.8); MEAN CORPUSCULAR HGB CONC 31.9 g/dL (32.4-35.8); MEAN PLATELET VOLUME 8.4 fL (7.4-10.4); MONOCYTES % (AUTO) 8 % (2-9); NEUTROPHILS % (AUTO) 77 % (42-75); PLATELET COUNT 297 x10^3/uL (130-400); RED BLOOD COUNT 3.72 x10^6/uL (3.82-5.3); RED CELL DISTRIBUTION WIDTH 19.2 % (9.6-15.2)
[2020-05-21 10:55] LABS: MD NO
[2020-05-21 11:03] LABS: ALANINE AMINOTRANSFERASE 17 U/L (12-78); ALBUMIN 3.3 g/dL (3.4-5.0); ANION GAP 10 mmol/L (5-15); CALCIUM 10.9 mg/dL (8.5-10.1); CHLORIDE 102 mmol/L (98-107); CREATININE 8.22 mg/dL (0.55-1.02)
--- NOTE | 2020-05-21 11:06 | NUR ---
PT RESTING COMFORTABLY, WARM BLANKETS PROVIDED, ALL MONITORS IN PLACE, CALL LIGHT WITHIN REACH. VITALS UPDATED. NO FURTHER NEEDS AT THIS TIME.
[2020-05-21 11:07] LABS: ALKALINE PHOSPHATASE 101 U/L (45-117); BILIRUBIN,TOTAL 0.4 mg/dL (0.2-1.0); TOTAL PROTEIN 8.4 g/dL (6.4-8.2); TROPONIN I 0.043 ng/mL (0.000-0.045)
--- NOTE | 2020-05-21 13:09 | NUR ---
PT RESTING IN [facility]. NO NEEDS AT THIS TIME
--- NOTE | 2020-05-21 13:52 | NUR ---
MT REPEAT CALL PLACED FOR NEPHROLOGY DR ANTUNEZ. MESSAGE LEFT
--- NOTE | 2020-05-21 14:25 | NUR ---
PT SLEEPING IN ROOM, RESPIRATIONS EVEN AND UNLABORED. VITALS UPDATED, MONITORS AND CALL LIGHT WITHIN REACH. AWAITING DISPOSITION
--- NOTE | 2020-05-21 15:03 | NUR ---
Patient/Caregiver given discharge instructions and they have confirmed that they understand the instructions. Patient d/c in wheelchair for call to [facility] for transport with her walker.
[2020-05-21 15:04] VITALS: BP 167/95
== END 2020-05-21 15:09 | disposition home or self-care (01) ==
LOC: ED 10:17
DX: E11.22 Type 2 diabetes mellitus with diabetic chronic kidney disease (principal); I12.0 Hypertensive chronic kidney disease with stage 5 chronic kidney disease or end stage renal disease; N18.6 End stage renal disease; N18.9 Chronic kidney disease, unspecified; J81.0 Acute pulmonary edema; I10 Essential (primary) hypertension; E11.9 Type 2 diabetes mellitus without complications; J43.9 Emphysema, unspecified; R06.02 Shortness of breath; R06.00 Dyspnea, unspecified; F17.200 Nicotine dependence, unspecified, uncomplicated; Z86.73 Personal history of transient ischemic attack (TIA), and cerebral infarction without residual deficits
CPT/HCPCS: 36415; 71045; 80053; 83605; 83880; 84145; 84484; 85025; 87040; 99285

== ENCOUNTER 2020-10-02 21:49 | Inpatient (IN) | payer MEDICARE, MEDICAID ==
[~2020-10-02] VITALS: Ht 165.1 cm; Wt 60.5 kg
[~2020-10-02 21:49] MED LIST changes: +ACET325T26 PO; -HYDR-1067 PO; +HYDR-2214 PO; +SULF-23 PO; -SULF1TAB24 PO; -VANC1VIA3 PO; +VANC1VIA36 PO
[2020-10-02 22:54] LABS: BASOPHILS % (AUTO) 1 % (0-1); EOSINOPHILS % (AUTO) 2 % (1-7); LYMPHOCYTES % (AUTO) 13 % (22-44); MEAN CORPUSCULAR HEMOGLOBIN 30.6 pg (27.0-34.8); MEAN CORPUSCULAR HGB CONC 33.4 g/dL (32.4-35.8); MEAN PLATELET VOLUME 8.7 fL (7.4-10.4); MONOCYTES % (AUTO) 9 % (2-9); NEUTROPHILS % (AUTO) 76 % (42-75); PLATELET COUNT 202 x10^3/uL (130-400); RED BLOOD COUNT 2.86 x10^6/uL (3.82-5.3); RED CELL DISTRIBUTION WIDTH 17.8 % (9.6-15.2)
[2020-10-02 23:19] LABS: ALBUMIN 3.2 g/dL (3.4-5.0); CALCIUM 9.4 mg/dL (8.5-10.1)
[2020-10-02 23:25] LABS: ALKALINE PHOSPHATASE 81 U/L (45-117); ANION GAP 6 mmol/L (5-15); BILIRUBIN,TOTAL 0.5 mg/dL (0.2-1.0); CHLORIDE 100 mmol/L (98-107); CREATININE 4.93 mg/dL (0.55-1.02); TOTAL PROTEIN 7.7 g/dL (6.4-8.2)
[2020-10-02 23:28] LABS: TROPONIN I 0.564 ng/mL (0.000-0.045)
[2020-10-02 23:45] LABS: ALANINE AMINOTRANSFERASE 13 U/L (12-78)
--- NOTE | 2020-10-03 00:24 | NUR ---
PT STATES SHES BEEN HURTING SINCE DIALYSIS AND REFUSED AMBULANCE PT C/O OF CHEST PAIN AND SOB SINCE THIS EVENING. NIECE BROUGHT PT TO ER. PT ATTCAHED TO CARD/SP02/BP MONITORS. VSS. MARTINEZ. PT a&0X4, BREATHING EVEN AND UNLABORED. PT TALKING AND EATING DORITOS. BED IN LOW POSITION, RAILS ENGAGED. CALL LIGHT ON LAP.
--- NOTE | 2020-10-03 01:27 | NUR ---
Patient is resting comfortably in bed. Bed in lowest, rails engaged, call light on lap. Vital Signs within normal limits. WCTM.
[2020-10-03] MEDS ORDERED: ONDANSETRON 2MG/ML, 2ML IVPush PRN (01:30)
[2020-10-03] MEDS ORDERED: POLYETHYLENE GLYCOL 17 GM PACKET PO PRN (01:30)
[2020-10-03] MEDS ORDERED: MELATONIN 5 MG TABLET PO PRN (01:30)
[2020-10-03] MEDS ORDERED: ENOXAPARIN 40 MG/0.4 ML SQ SCH (01:30)
[2020-10-03] MEDS ORDERED: ACETAMINOPHEN 325 MG TABLET PO PRN (01:30)
[2020-10-03 03:28] VITALS: BP 163/80
[2020-10-03] MEDS: HEPARIN 5,000 UNITS/ML, 1ML SQ SCH ×2 (04:00→18:03)
[2020-10-03] MEDS: INSULIN LISPRO 100 UNITS/ML, PEN SQ-INSULIN SCH ×5 (04:39→20:35)
[2020-10-03] MEDS ORDERED: LORazepam 0.5MG TABLET PO PRN (05:00)
[2020-10-03 07:40] VITALS: BP 138/72
[2020-10-03] MEDS: ALBUTEROL/IPRATROPIUM 2.5MG/0.5MG, 3 ML NPPB SCH ×3 (09:05→19:08)
[2020-10-03 10:04] LABS: BASOPHILS % (AUTO) 1 % (0-1); EOSINOPHILS % (AUTO) 2 % (1-7); LYMPHOCYTES % (AUTO) 14 % (22-44); MEAN CORPUSCULAR HEMOGLOBIN 30.3 pg (27.0-34.8); MEAN CORPUSCULAR HGB CONC 33.2 g/dL (32.4-35.8); MEAN PLATELET VOLUME 8.4 fL (7.4-10.4); MONOCYTES % (AUTO) 11 % (2-9); NEUTROPHILS % (AUTO) 72 % (42-75); PLATELET COUNT 212 x10^3/uL (130-400); RED BLOOD COUNT 2.95 x10^6/uL (3.82-5.3); RED CELL DISTRIBUTION WIDTH 18.4 % (9.6-15.2)
[2020-10-03 10:16] LABS: ANION GAP 4 mmol/L (5-15); CALCIUM 9.5 mg/dL (8.5-10.1); CHLORIDE 100 mmol/L (98-107)
[2020-10-03 10:19] LABS: CREATININE 5.73 mg/dL (0.55-1.02)
[2020-10-03] MEDS: SEVELAMER CARBONATE 800MG TAB PO SCH ×3 (10:55→20:34)
[2020-10-03] MEDS: CARVEDILOL 25 MG TABLET PO SCH ×2 (10:56→20:33)
[2020-10-03] MEDS ORDERED: HALOPERIDOL 5 MG/ML ONE (15:52)
[2020-10-03] MEDS ORDERED: HALOPERIDOL 5 MG/ML IM PRN (16:00)
[2020-10-03 16:26] VITALS: BP 130/77
[2020-10-03 20:24] VITALS: BP 118/69
[2020-10-03] MEDS ORDERED: ATORVASTATIN 40 MG TABLET PO SCH (21:00)
[2020-10-04 00:35] VITALS: BP 104/50
[2020-10-04] MEDS: ALBUTEROL/IPRATROPIUM 2.5MG/0.5MG, 3 ML NPPB SCH ×2 (01:10→07:05)
[2020-10-04] MEDS: HEPARIN 5,000 UNITS/ML, 1ML SQ SCH (05:15)
[2020-10-04] MEDS: INSULIN LISPRO 100 UNITS/ML, PEN SQ-INSULIN SCH ×2 (07:00→11:53)
[2020-10-04 07:25] VITALS: BP 132/71
[2020-10-04] MEDS: SEVELAMER CARBONATE 800MG TAB PO SCH ×2 (08:20→12:00)
[2020-10-04] MEDS: CARVEDILOL 25 MG TABLET PO SCH (09:00)
== END 2020-10-04 14:48 | disposition left against medical advice (07) | DRG 189 ==
LOC: ED 10-03 01:54 → EDIP 10-03 02:12 → 5SO 10-03 03:21
PROVIDERS: ADMIT Internal Medicine; ATTEND Internal Medicine
PROC: 5A1D70Z Performance of Urinary Filtration, Intermittent, Less than 6 Hours Per Day (ICD-10-PCS; principal; 2020-10-03)
DX: J96.01 Acute respiratory failure with hypoxia (principal); G93.41 Metabolic encephalopathy; I21.A1 Myocardial infarction type 2; N18.6 End stage renal disease; I13.2 Hypertensive heart and chronic kidney disease with heart failure and with stage 5 chronic kidney disease, or end stage renal disease; E87.2 Acidosis; E11.21 Type 2 diabetes mellitus with diabetic nephropathy; B19.20 Unspecified viral hepatitis C without hepatic coma; D64.9 Anemia, unspecified; E11.22 Type 2 diabetes mellitus with diabetic chronic kidney disease; F17.200 Nicotine dependence, unspecified, uncomplicated; F41.1 Generalized anxiety disorder; I50.9 Heart failure, unspecified; Z91.11 Patient's noncompliance with dietary regimen; J43.9 Emphysema, unspecified; Z91.19 Patient's noncompliance with other medical treatment and regimen; Z99.2 Dependence on renal dialysis; F19.10 Other psychoactive substance abuse, uncomplicated; Z53.29 Procedure and treatment not carried out because of patient's decision for other reasons; Z89.429 Acquired absence of other toe(s), unspecified side
CPT/HCPCS: 36415; 36600; 70450; 71045; 80048; 80053; 80320; 82140; 82800; 82962; 83036; 83735; 83880; 84100; 84484; 85025; 93005; 93306; 94640; 99285; G0378; J1644; G0480; J1630

== ENCOUNTER 2020-11-22 11:21 | Inpatient (IN) | payer MEDICARE ==
[~2020-11-22] VITALS: Ht 167.6 cm; Wt 61.0 kg
--- NOTE | 2020-11-22 11:21 | NUR ---
Pt arrived at 1113 by EMS, moved to ER [facility] and report received with care assumed. Pt changed into gown, placed on full bedside monitoring, and 12 lead EKG completed by technical solutions consultant for MD. internet network specialist completed, warm blankets provided, call light in reach, and side rails up x2 for safety.
[2020-11-22] MEDS ORDERED: SODIUM CHLORIDE FLUSH 10ML SYR IVF ONE (11:30)
--- NOTE | 2020-11-22 11:30 | NUR ---
at bedside for exam.
--- NOTE | 2020-11-22 11:45 | NUR ---
fingerprint technician at bedside for draw.
--- NOTE | 2020-11-22 12:30 | NUR ---
Pt resting comfortably without c/o at this time. No acute changes in pt condition noted.
[2020-11-22 12:41] LABS: BASOPHILS % (AUTO) 1 % (0-1); EOSINOPHILS % (AUTO) 1 % (1-7); LYMPHOCYTES % (AUTO) 19 % (22-44); MEAN CORPUSCULAR HEMOGLOBIN 29.4 pg (27.0-34.8); MEAN CORPUSCULAR HGB CONC 32.4 g/dL (32.4-35.8); MEAN PLATELET VOLUME 8.5 fL (7.4-10.4); MONOCYTES % (AUTO) 7 % (2-9); NEUTROPHILS % (AUTO) 72 % (42-75); PLATELET COUNT 181 x10^3/uL (130-400); RED BLOOD COUNT 2.76 x10^6/uL (3.82-5.3); RED CELL DISTRIBUTION WIDTH 19.3 % (9.6-15.2)
[2020-11-22 12:50] LABS: ANION GAP 14 mmol/L (5-15); CHLORIDE 102 mmol/L (98-107)
[2020-11-22 12:55] LABS: INTERNATIONAL NORMALIZED RATIO 1.04 (0.93-1.1); PROTHROMBIN TIME 11.1 Seconds (9.6-11.5)
--- NOTE | 2020-11-22 12:55 | NUR ---
Report given and care transferred to new primary RN. Discussed need for IV saline lock start still on pt and likely to be admitted status.
[2020-11-22 13:07] LABS: ALANINE AMINOTRANSFERASE 14 U/L (12-78); ALKALINE PHOSPHATASE 74 U/L (45-117); BILIRUBIN,TOTAL 0.6 mg/dL (0.2-1.0); TOTAL PROTEIN 7.8 g/dL (6.4-8.2); TROPONIN I 0.018 ng/mL (0.000-0.045)
--- NOTE | 2020-11-22 13:20 | NUR ---
PT GIVEN BEDSIDE COMMODE TO HAVE BM. PT ABLE TO TRANSFER FROM BED TO COMMODE WITHOUT ASSIST.
--- NOTE | 2020-11-22 13:20 | NUR ---
PT REFUSING IV PLACEMENT AT THIS TIME. PT STATED SHE IS A HARD STICK. ASKED PT WHERE IVs HAVE BEEN PLACED IN THE PAST, PT STATED THEY DON'T PLACE IVs ON HER. WILL ASK AGAIN LATER.
[2020-11-22] MEDS ORDERED: POLYETHYLENE GLYCOL 17 GM PACKET PO PRN (14:00)
[2020-11-22] MEDS ORDERED: ONDANSETRON 2MG/ML, 2ML IVPush PRN (14:00)
[2020-11-22] MEDS ORDERED: ACETAMINOPHEN 325 MG TABLET PO PRN (14:00)
[2020-11-22] MEDS ORDERED: hydrALAzine 20 MG/ML, 1ML IVPush PRN (14:00)
[2020-11-22] MEDS ORDERED: METHOCARBAMOL 500 MG TABLET PO PRN (14:00)
[2020-11-22] MEDS ORDERED: DOCUSATE 100 MG CAPSULE PO PRN (14:00)
[2020-11-22] MEDS ORDERED: PROMETHAZINE 25 MG/ML, 1ML IM PRN (14:00)
[2020-11-22] MEDS ORDERED: ONDANSETRON ODT 4 MG PO PRN (14:00)
[2020-11-22] MEDS ORDERED: BISACODYL 10 MG SUPP PR PRN (14:00)
--- NOTE | 2020-11-22 14:19 | NUR ---
REPORT TO MIKE MARLEY.
--- NOTE | 2020-11-22 14:26 | NUR ---
PT REFUSING IV PLACEMENT. PT STATED, "I'M TOO HARD OF A STICK". OFFERED PT US PLACEMENT FOR IV, PT STILL REFUSED. CALLED DR. MCKENNA TO INFORM HIM, HE IS OKAY AT THIS TIME
[2020-11-22] MEDS ORDERED: ERGOCALCIFEROL 50,000 UNIT CAPSULE PO SCH (15:00)
[2020-11-22] MEDS ORDERED: DARBEPOETIN 100 MCG/ML SQ SCH (15:00)
[2020-11-22] MEDS: HEPARIN 5,000 UNITS/ML, 1ML SQ SCH ×2 (15:00→21:36)
[2020-11-22] MEDS: SEVELAMER CARBONATE 800MG TAB PO SCH (15:18)
[2020-11-22] MEDS: OXYcodone IR 5MG TABLET PO PRN ×2 (15:19→22:05)
[2020-11-22 20:05] VITALS: BP 141/73
[2020-11-22] MEDS: CARVEDILOL 25 MG TABLET PO SCH (21:36)
[2020-11-22] MEDS: ATORVASTATIN 40 MG TABLET PO SCH (21:36)
[2020-11-23 00:38] VITALS: BP 121/77
[2020-11-23 05:34] LABS: BASOPHILS % (AUTO) 1 % (0-1); EOSINOPHILS % (AUTO) 2 % (1-7); LYMPHOCYTES % (AUTO) 23 % (22-44); MEAN CORPUSCULAR HEMOGLOBIN 29.4 pg (27.0-34.8); MEAN CORPUSCULAR HGB CONC 32.7 g/dL (32.4-35.8); MEAN PLATELET VOLUME 8.7 fL (7.4-10.4); MONOCYTES % (AUTO) 9 % (2-9); NEUTROPHILS % (AUTO) 65 % (42-75); PLATELET COUNT 140 x10^3/uL (130-400); RED BLOOD COUNT 2.41 x10^6/uL (3.82-5.3); RETICULOCYTE COUNT % 1.65 % (0.5-1.5)
[2020-11-23 05:41] LABS: ALBUMIN 2.5 g/dL (3.4-5.0); ANION GAP 8 mmol/L (5-15); CALCIUM 8.7 mg/dL (8.5-10.1); CHLORIDE 99 mmol/L (98-107)
[2020-11-23 05:52] LABS: % IRON SATURATION 25 % (20-55); ALANINE AMINOTRANSFERASE 13 U/L (12-78); ALKALINE PHOSPHATASE 52 U/L (45-117); BILIRUBIN,TOTAL 0.7 mg/dL (0.2-1.0); CHOL/HDL RATIO 2.1; CHOLESTEROL, TOTAL 100 mg/dL (140-239); HDL CHOL % 47 % (28-40); HDL CHOLESTEROL (DIRECT) 47 mg/dL (40-60); IRON LEVEL 56 mcg/dL (50-170); LDL CHOLESTEROL,CALCULATED 40 mg/dL (54-169); LDL/HDL RATIO 0.9 (0.5-3.0); TOTAL IRON BINDING CAPACITY 225 mcg/dL (250-450); TOTAL PROTEIN 6.4 g/dL (6.4-8.2); TRIGLYCERIDES 65 mg/dL (50-200); VLDL CHOLESTEROL 13 mg/dL (0-25)
[2020-11-23 06:42] VITALS: BP 119/58
[2020-11-23] MEDS: HEPARIN 5,000 UNITS/ML, 1ML SQ SCH ×3 (07:41→20:30)
[2020-11-23] MEDS: CARVEDILOL 25 MG TABLET PO SCH ×2 (07:41→20:28)
[2020-11-23] MEDS: SEVELAMER CARBONATE 800MG TAB PO SCH ×3 (07:41→17:00)
[2020-11-23] MEDS: CALCITRIOL 0.25 MCG CAPSULE PO SCH (12:33)
[2020-11-23 13:17] VITALS: BP 107/57
[2020-11-23 20:26] VITALS: BP 104/55
[2020-11-23] MEDS: ATORVASTATIN 40 MG TABLET PO SCH (20:29)
[2020-11-23] MEDS ORDERED: NITROGLYCERIN 0.4 MG/SPRAY SL PRN (23:30)
[2020-11-23] MEDS ORDERED: NITROGLYCERIN 0.4 MG BOTTLE (25 TABS) SL PRN (23:30)
[2020-11-23] MEDS: OXYcodone IR 5MG TABLET PO PRN (23:35)
[2020-11-24 00:54] VITALS: BP_SYST 87; BP_SYST 92; BP_DIAS 38; BP_DIAS 51
[2020-11-24 06:53] VITALS: BP 106/39
[2020-11-24] MEDS: CARVEDILOL 25 MG TABLET PO SCH (08:12)
[2020-11-24] MEDS: CALCITRIOL 0.25 MCG CAPSULE PO SCH (08:18)
[2020-11-24] MEDS: SEVELAMER CARBONATE 800MG TAB PO SCH ×2 (08:18→12:37)
== END 2020-11-24 12:30 | disposition home or self-care (01) | DRG 640 ==
LOC: ED 13:40 → EDIP 13:45 → 5SO 14:59
PROVIDERS: ADMIT Internal Medicine; ATTEND Internal Medicine
PROC: 5A1D70Z Performance of Urinary Filtration, Intermittent, Less than 6 Hours Per Day (ICD-10-PCS; principal; 2020-11-23)
DX: E87.70 Fluid overload, unspecified (principal); J96.01 Acute respiratory failure with hypoxia; N18.6 End stage renal disease; I13.2 Hypertensive heart and chronic kidney disease with heart failure and with stage 5 chronic kidney disease, or end stage renal disease; G93.40 Encephalopathy, unspecified; I50.1 Left ventricular failure, unspecified; E11.22 Type 2 diabetes mellitus with diabetic chronic kidney disease; F41.1 Generalized anxiety disorder; J43.9 Emphysema, unspecified; F17.210 Nicotine dependence, cigarettes, uncomplicated; D63.1 Anemia in chronic kidney disease; I08.1 Rheumatic disorders of both mitral and tricuspid valves; I16.0 Hypertensive urgency; I27.20 Pulmonary hypertension, unspecified; Z99.2 Dependence on renal dialysis; Z91.15 Patient's noncompliance with renal dialysis; Z79.899 Other long term (current) drug therapy
CPT/HCPCS: 36415; 71045; 80053; 80061; 82140; 82306; 82728; 83036; 83540; 83550; 83605; 83735; 83880; 83970; 84100; 84443; 84484; 84550; 85025; 85045; 85610; 87340; 90935; 93005; 96372; 99285; G0378; J0881; J1644